=== PATIENT | female | born 1970 | race Caucasian/White ===

== ENCOUNTER 2018-07-31 00:42 | Inpatient (IN) | payer OTHER, MEDICAID ==
[~2018-07-31] VITALS: Ht 162.6 cm; Wt 188.2 kg
--- NOTE | 2018-07-31 00:42 | NUR ---
PT ALIC[facility] BLS. TAKEN TO BED 10
[2018-07-31 00:45] VITALS: BP 166/77
--- NOTE | 2018-07-31 00:45 | NUR ---
PT BIBA WITH C/O OF PAIN TO THE LEG BIALTERAL. PT HAS CELLULITIS ON LEGS, BACK, ABDOMEN REGION, BUTTOCKS. PT HAS RASH ALL OVER EXTREMETIES, STOMACH , ARMS, CHEST AND BACK. PT STATED THAT SHE HAD BEEN ADMITTED TO [facility] PREVIOUSLY FOR CELLULITIS AND UTI. PT PAIN LEVEL IS 10/10. PT IS A/O X 4. PT STATED SHE HAS ALLERGY TO VANCOMYCIN. MEDICAL HX IS KIDNEY FAILURE, DM AND HTN; VSS; PATIENT POSITIONED FOR COMFORT; HOB ELEVATED; BEDRAILS UP X2; BED DOWN. ER MD MADE AWARE OF PT STATUS.
--- NOTE | 2018-07-31 00:46 | NUR ---
Dr. Boyer evaluating patient at bedside.
[2018-07-31] MEDS ORDERED: LORA10TA19 PO (01:12)
[2018-07-31] MEDS ORDERED: TAMS0.4C96 PO (01:12)
[2018-07-31] MEDS ORDERED: DULO20EC PO (01:12)
[2018-07-31] MEDS ORDERED: INSU100S22 SUBQ (01:12)
[2018-07-31] MEDS ORDERED: HUM SUBQ (01:12)
[2018-07-31] MEDS ORDERED: IMO2 PO (01:12)
[2018-07-31] MEDS ORDERED: FAMO-90 PO (01:12)
[2018-07-31] MEDS ORDERED: GABA300C PO (01:12)
[2018-07-31] MEDS ORDERED: LATA7.5D OP (01:12)
[2018-07-31] MEDS ORDERED: PRON INH (01:12)
[2018-07-31] MEDS ORDERED: LEVA0.6318 INH (01:12)
[2018-07-31] MEDS ORDERED: APIX5TAB PO (01:12)
[2018-07-31] MEDS ORDERED: BISO5TAB2 PO (01:12)
[2018-07-31] MEDS ORDERED: ACET-2869 PO (01:12)
[2018-07-31] MEDS ORDERED: MAGN400T7 PO (01:12)
[2018-07-31] MEDS ORDERED: LEVOFLOXACIN 750 MG/D5W PREMIX 150 ML IV ONE (01:15)
[2018-07-31] MEDS ORDERED: MEROPENEM 1,000 MG in NACL 0.9% 100 ML IV ONE (01:15)
--- NOTE | 2018-07-31 01:30 | NUR ---
Respiratory Therapist at bedside for ABG's
--- NOTE | 2018-07-31 01:34 | NUR ---
X-Ray at bedside.
[2018-07-31 01:46] LABS: BASOPHILS # (AUTO) 0.1 K/uL (0.00-0.22); EOSINOPHILS # (AUTO) 0.7 K/uL (0-0.4); EOSINOPHILS % (AUTO) 9.2 % (0.0-4.0); HEMATOCRIT 29.2 % (36-48); HEMOGLOBIN 9.2 g/dL (12.0-16.0); LYMPHOCYTES # (AUTO) 1.8 K/uL (2.5-16.5); LYMPHOCYTES % (AUTO) 24.6 % (20.5-51.1); MEAN CORPUSCULAR HEMOGLOBIN 28 pg (27-31); MEAN CORPUSCULAR HGB CONC 32 g/dL (33-37); MONOCYTES # (AUTO) 0.5 K/uL (0.8-1.0); MONOCYTES % (AUTO) 6.3 % (1.7-9.3); NEUTROPHILS # (AUTO) 4.3 K/uL (1.8-7.7); NEUTROPHILS % (AUTO) 58.9 % (42.2-75.2); PLATELET COUNT (AUTO) 225 K/uL (140-450); RED BLOOD CELL COUNT(AUTO) 3.32 MIL/uL (4.20-5.40); RED CELL DISTRIBUTION WIDTH 17.1 % (11.6-13.7); WHITE BLOOD COUNT (AUTO) 7.2 K/uL (4.8-10.8)
[2018-07-31 02:13] LABS: PROTHROMBIN TIME 10.1 secs (10.8-13.4)
--- NOTE | 2018-07-31 02:15 | NUR ---
PT IS ABLE TO TURN SIDE TO SIDE WITH ASSISTANCE. PT TOERATED WELL.
[2018-07-31 02:27] LABS: ANION GAP 9.9 (8-16); CARBON DIOXIDE 26.8 mmol/L (21-32); POTASSIUM 4.7 mmol/L (3.5-5.1)
[2018-07-31 02:28] LABS: CREATININE 1.9 mg/dL (0.6-1.3)
[2018-07-31] MEDS ORDERED: MEROPENEM 1,000 MG VIAL IV ONE (02:28)
--- NOTE | 2018-07-31 02:30 | NUR ---
MARKS CATH WAS INSERTED PER MD ORDER. PT TOLERATED WELL. U/A WAS COLLECTED.
[2018-07-31 02:40] LABS: ALBUMIN 2.5 g/dL (3.4-5.0); TOTAL BILIRUBIN 0.3 mg/dL (0.0-1.0)
--- NOTE | 2018-07-31 03:14 | NUR ---
PT SITTING UP IN BED VITALS STABLE. COMFORT MEASURES OFFERED PT TOLERATED WELL.
--- NOTE | 2018-07-31 05:05 | NUR ---
PT SLEEPING IN BED, VITALS STABLE.
[2018-07-31] MEDS ORDERED: LORazepam 2 MG/ML VIAL IM/IVP PRN (06:35)
[2018-07-31] MEDS ORDERED: ACETAMINOPHEN 325 MG TAB PO PRN (06:35)
[2018-07-31] MEDS ORDERED: ONDANSETRON 4 MG/2 ML VIAL IM/IVP PRN (06:35)
[2018-07-31] MEDS ORDERED: ZOLPIDEM 5 MG TAB PO PRN (06:35)
[2018-07-31] MEDS ORDERED: DOCUSATE SODIUM 100 MG GELCAP PO PRN (06:35)
--- NOTE | 2018-07-31 06:50 | NUR ---
PT WAITING TO BE TRANSFERED. VITALS STABLE.
--- NOTE | 2018-07-31 07:10 | NUR ---
GAVE REPORT TO CLEVELAND BALL, VITALS STABLE
--- NOTE | 2018-07-31 07:20 | NUR ---
Patient will be admitted to care of DR. CROW. Admited to TELEMETRY. Will go to room 107 b. Belongings list completed.
[2018-07-31 07:22] LABS: APPEARANCE,URINE SL CLOUDY (CLEAR); BILIRUBIN,URINE NEGATIVE (NEGATIVE); BLOOD, URINE 2+ (NEGATIVE); COLOR,URINE YELLOW (YELLOW); LEUKOCYTE ESTERASE ,URINE 1+ (NEGATIVE); NITRITE, URINE NEGATIVE (NEGATIVE); PH,URINE 5.5 (5.0-9.0); UGLUCOSE NEGATIVE (NEGATIVE)
--- NOTE | 2018-07-31 07:36 | NUR ---
Patient will be admitted to care of dr peterson. Admited to [facility]. Will go to room 107B. Belongings list completed. Report to TEJAS BALL.
[2018-07-31 07:39] LABS: BARBITURATE, URINE NEG. ng/ml (NEG <=200); BENZODIAZEPINE, URINE NEG. ng/mL (NEG <=200); COCAINE, URINE NEG. ng/mL (NEG <=300); OPIATE, URINE POS. ng/mL (NEG <=2000); PHENCYCLIDINE SCREEN,URINE NEG. ng/mL (NEG <=25)
[2018-07-31 07:45] VITALS: BP 127/56
--- NOTE | 2018-07-31 07:45 | NUR ---
PATIENT ADMITTED FROM ER. PATIENT AWAKE, ALERT AND ORIENTED. NO S/S OF DISTRESS NOTED. MARKS CATHETER IN PLACE, DRAINING CLEAR YELLOW URINE. PICC LINE NOTED ON THE RIGHT UPPER ARM. EDEMA AND REDNESS NOTED ON BILATERAL THIGHS. MOISTURE ASSOCIATED SKIN DAMAGE NOTED BILATERAL POSTERIOR UPPER THIGHS. TELE MONITORING. FALL PRECAUTIONS IN PLACE. WILL CONTINUE TO MONITOR
[2018-07-31 07:53] LABS: BASOPHILS # (AUTO) 0.1 K/uL (0.00-0.22); BASOPHILS % (AUTO) 0.9 % (0.0-2.0); EOSINOPHILS # (AUTO) 0.7 K/uL (0-0.4); EOSINOPHILS % (AUTO) 8.8 % (0.0-4.0); HEMATOCRIT 30.9 % (36-48); HEMOGLOBIN 9.5 g/dL (12.0-16.0); LYMPHOCYTES # (AUTO) 1.5 K/uL (2.5-16.5); LYMPHOCYTES % (AUTO) 19.6 % (20.5-51.1); MEAN CORPUSCULAR HEMOGLOBIN 27 pg (27-31); MEAN CORPUSCULAR HGB CONC 31 g/dL (33-37); MEAN CORPUSCULAR VOLUME 89.1 fL (80-94); MONOCYTES # (AUTO) 0.5 K/uL (0.8-1.0); MONOCYTES % (AUTO) 6.4 % (1.7-9.3); NEUTROPHILS % (AUTO) 64.3 % (42.2-75.2); PLATELET COUNT (AUTO) 228 K/uL (140-450); RED BLOOD CELL COUNT(AUTO) 3.47 MIL/uL (4.20-5.40); RED CELL DISTRIBUTION WIDTH 17.3 % (11.6-13.7); WHITE BLOOD COUNT (AUTO) 7.8 K/uL (4.8-10.8)
[2018-07-31 08:16] LABS: CANNABINOID, URINE NEGATIVE ng/mL (NEG <=50)
[2018-07-31 08:20] LABS: ALBUMIN 2.6 g/dL (3.4-5.0); ANION GAP 5.1 (8-16); CARBON DIOXIDE 27.9 mmol/L (21-32); CREATININE 1.8 mg/dL (0.6-1.3); TOTAL BILIRUBIN 0.2 mg/dL (0.0-1.0)
[2018-07-31 08:26] LABS: RBC,URINE 3-10 (FEW) /HPF (0-5); WBC,URINE 16-25 (MOD) /HPF (0-5)
--- NOTE | 2018-07-31 08:26 | NUR ---
PATIENT HAS BEEN SCREENED AND CATEGORIZED HIGH NUTRITION RISK. PATIENT WILL BE SEEN WITHIN 1-2 DAYS OF ADMISSION. 07/31/18 08/01/[address]
[2018-07-31 08:27] LABS: PROTHROMBIN TIME 10.4 secs (10.8-13.4)
[2018-07-31 08:30] LABS: CHOL/HDL RATIO 3.8 (1-4.5); MAGNESIUM 1.9 mg/dL (1.8-2.4); THYROID STIMULATING HORMONE 3.71 uIU/mL (0.34-3.74)
[2018-07-31] MEDS ORDERED: Z-GUARD PASTE TP ONE (10:25)
[2018-07-31] MEDS ORDERED: Z-GUARD PASTE TP PRN (11:05)
[2018-07-31] MEDS ORDERED: LOPERAMIDE 2 MG CAP PO PRN (11:05)
[2018-07-31] MEDS ORDERED: DEXTROSE 50% 50 ML SYR IVP PRN (11:50)
[2018-07-31 12:00] VITALS: BP 146/60
--- NOTE | 2018-07-31 12:00 | NUR ---
PATIENT ASLEEP IN BED. NO S/S OF DISTRESS NOTED
[2018-07-31] MEDS: NACL 0.9% 1,000 ML IV SCH ×2 (12:06→20:39)
--- NOTE | 2018-07-31 15:08 | NUR ---
07/31/18 RD INITIAL ASSESSMENT COMPLETED PLEASE REFER TO NUTRITION ASSESSMENT UNDER CARE ACTIVITY FOR ESTIMATED NUTRITIONAL NEEDS. 1. CONTINUE NPO MEDICALLY APPROPRIATE 2. WHEN PATIENT IS MEDICALLY STABLE RECOMMEND CCHO AND RENAL DIET TOLERATED. 3. RD PROVIDED NUTRITION EDUCATION ON DIABETES. PT ACCEPTED. 4. RD TO FOLLOW-UP 3-5 DAYS, MODERATE RISK MAYCOL KING RD
[2018-07-31] MEDS ORDERED: HYDROcodone/APAP 5/325 MG 1 TAB TAB PO SCH ×2 (15:45→21:00)
--- NOTE | 2018-07-31 15:45 | NUR ---
PATIENT CRYING AND COMPLAINING ABOUT DISCOMFORT IN HER MARKS CATHETER. MARKS CATHETER CHECKED. MARKS CATHETER IN PLACE, DRAINING URINE. NOTIFIED DR PETTIT. DR SPOKE TO THE PATIENT AND EXPLAINED PURPOSE OF THE CATHETER. PATIENT VERBALIZED UNDERSTANDING
[2018-07-31] MEDS ORDERED: HYDROcodone/APAP 5/325 MG 1 TAB TAB PO PRN (15:55)
[2018-07-31 16:00] VITALS: BP 128/44
--- NOTE | 2018-07-31 16:00 | NUR ---
PATIENT REFUSED TO BE TURNED AT THIS TIME. EXPLAINED TO THE PATIENT THE RISK OF NOT BEING TURNED, PATIENT VERBALIZED UNDERSTANDING
--- NOTE | 2018-07-31 16:02 | NUR ---
PATIENT COMPLAINING OF 10/10 LEG PAIN. PATIENT OFFERED MORPHINE BUT REQUESTED NORCO
[2018-07-31] MEDS: BLOOD GLUCOSE MONITORING 1 DEV DEV FS SCH ×2 (16:07→21:00)
[2018-07-31] MEDS: MORPHINE SULFATE 4 MG/ML SYR IVP PRN ×2 (16:47→21:53)
--- NOTE | 2018-07-31 16:47 | NUR ---
PATIENT CRYING AND C/O SEVERE PAIN IN HER RIGHT LEG. PATENT REQUESTED TO HAVE MORPHINE. V/S WITHIN NORMAL LIMITS. PRN MORPHINE ADMINISTERED . WILL CONTINUE TO MONITOR
[2018-07-31] MEDS: FERROUS GLUCONATE 324 MG TAB PO SCH (18:38)
--- NOTE | 2018-07-31 19:12 | NUR ---
PATIENT REPORT GIVEN AT BEDSIDE. PATIENT ENDORSED IN STABLE CONDITION
--- NOTE | 2018-07-31 19:13 | NUR ---
RECEIVED BEDSIDE REPORT. PATIENT RESTING IN BED. STATES SOME DISCOMFORT FROM BED. PT EDUCATED ON REASON FOR BED. PT IS A&O X4. IS ON 2L NC. NO SIGNS OF SOB. PT HAS PICC LINE ON RIGHT ARM DRESSING CLEAN DRY AND INTACT. PT WITH MARKS CATH DRAINING CLEAR YELLOW URINE. SKIN IS NOT INTACT. ALL SAFETY MEASURES ON IN PLACE. CALL LIGHT WITHIN REACH. WILL CONTINUE TO MONITOR.
[2018-07-31 20:00] VITALS: BP 124/41
--- NOTE | 2018-07-31 20:20 | NUR ---
NOTIFIED DR. MAYEN REGARDING PT C/O PAIN AND UNCOMFORTABLE, PAIN MEDICATIONS ARE NOT DUE YET, PER DAY SHIFT NURSE DR. AMBROSIO TALKED TO PT REGARDING INCREASING NORCO DOSE TO 10/325, STATED UNDERSTANDING TO GIVE NORCO RIGHT NOW AND SHE WILL PUT IN ORDER. WILL FOLLOW UP WITH ORDERS AND CONTINUE WITH ORDERS.
[2018-07-31] MEDS ORDERED: HYDROcodone/APAP 10/325 MG 1 TAB TAB ONE ×2 (20:25→21:16)
--- NOTE | 2018-07-31 20:26 | NUR ---
PT REFUSED BARIATRIC BED, PT STATED FEELING UNCOMFORTABLE, YELLING AND CRYING, NOTIFIED COMMUNITY SERVICE REPRESENTATIVE AND CHARGE NURSE, TX PT TO ICU BED, PT TOLERATED WELL, PT REFUSED NORCO AT THIS MOMENT.
--- NOTE | 2018-07-31 21:25 | NUR ---
PT STATED STILL FEELING UNCOMFORTABLE AND PAIN, DR. RAMOS NOTIFIED REGARDING PAIN MEDICATION NOT DUE YET, STATED OK TO GIVE NORCO 10/325, RIGHT NOW, WILL PUT IN ORDERS. PT TOLERATED WELL, NO DISTRESS NOTED, CALL LIGHT WITHIN REACH, WILL CONTINUE TO MONITOR.
--- NOTE | 2018-07-31 21:30 | NUR ---
TALKED TO DR. RAMOS REGARDING PT STATED HAVING ITCHINESS TO THE BACK OF LEG, AND REFUSED Z GUARD. STATED UNDERSTANDING AND WILL ORDER MEDICATION. WILL FOLLOW UP WITH ORDERS.
[2018-07-31] MEDS: GABAPENTIN 300 MG CAP PO SCH (21:32)
[2018-07-31] MEDS: APIXABAN 2.5 MG TAB PO SCH (21:33)
[2018-07-31] MEDS: INSULIN LISPRO SLIDING SCALE 100 UNITS/ML VIAL SUBQ PRN (21:34)
[2018-07-31] MEDS: hydrOXYzine HCL 25 MG TAB PO PRN (21:55)
--- NOTE | 2018-07-31 22:20 | NUR ---
DR. RAMOS AT BEDSIDE TALKING TO PT
[2018-08-01] VITALS: BP 134/47
--- NOTE | 2018-08-01 | NUR ---
PT LAYING IN BED WATCHING TELEVISION. STATES STILL HAS SOME DISCOMFORT ON BOTH LEGS. PT DID NOT WANT TO BE REPOSITION. PT IS CALMER THAN EARLIER. VITAL SIGNS ARE WITHIN NORMAL LIMITS. NO SIGNS OF SOB. CALL LIGHT WITHIN REACH. WILL CONTINUE TO MONITOR.
--- NOTE | 2018-08-01 02:19 | NUR ---
PT SLEEPING. NO DISTRESS NOTED AT THIS TIME WILL CONTINUE TO MONITOR. CALL LIGHT WITHIN REACH
[2018-08-01 04:00] VITALS: BP 119/61
--- NOTE | 2018-08-01 04:00 | NUR ---
VITAL SIGNS WITHIN NORMAL LIMITS. PT SLEEPING COMFORTABLY IN BED. NO SIGNS OF DISTRESS NOTED AT THIS TIME. BED ON LOWEST POSITION. ALL SAFETY MEASURES IN PLACE.
[2018-08-01 06:05] LABS: BASOPHILS # (AUTO) 0.1 K/uL (0.00-0.22); BASOPHILS % (AUTO) 0.7 % (0.0-2.0); EOSINOPHILS # (AUTO) 0.6 K/uL (0-0.4); EOSINOPHILS % (AUTO) 8.8 % (0.0-4.0); HEMATOCRIT 29.6 % (36-48); HEMOGLOBIN 9.2 g/dL (12.0-16.0); LYMPHOCYTES # (AUTO) 1.3 K/uL (2.5-16.5); LYMPHOCYTES % (AUTO) 17.7 % (20.5-51.1); MEAN CORPUSCULAR HEMOGLOBIN 28 pg (27-31); MEAN CORPUSCULAR HGB CONC 31 g/dL (33-37); MEAN CORPUSCULAR VOLUME 88.1 fL (80-94); MONOCYTES # (AUTO) 0.4 K/uL (0.8-1.0); MONOCYTES % (AUTO) 6.1 % (1.7-9.3); NEUTROPHILS # (AUTO) 4.8 K/uL (1.8-7.7); NEUTROPHILS % (AUTO) 66.7 % (42.2-75.2); PLATELET COUNT (AUTO) 221 K/uL (140-450); RED BLOOD CELL COUNT(AUTO) 3.36 MIL/uL (4.20-5.40); RED CELL DISTRIBUTION WIDTH 16.6 % (11.6-13.7); WHITE BLOOD COUNT (AUTO) 7.2 K/uL (4.8-10.8)
[2018-08-01] MEDS: BLOOD GLUCOSE MONITORING 1 DEV DEV FS SCH ×4 (06:16→20:50)
[2018-08-01] MEDS: NACL 0.9% 1,000 ML IV SCH ×2 (06:16→17:18)
[2018-08-01 06:44] LABS: ANION GAP 4.8 (8-16); CREATININE 1.6 mg/dL (0.6-1.3); POTASSIUM 4.8 mmol/L (3.5-5.1)
[2018-08-01 06:53] LABS: MAGNESIUM 1.9 mg/dL (1.8-2.4); PHOSPHORUS 3.6 mg/dL (2.5-4.9)
--- NOTE | 2018-08-01 07:18 | NUR ---
ENDORSED PT TO DAY SHIFT NURSE VIA SBAR. PT IN STABLE CONDITION. ALL SAFETY MEASURES IN PLACE.
--- NOTE | 2018-08-01 07:30 | NUR ---
RECEIVED REPORT FROM FIELD INSPECTOR NURSE, PT IS SLEEPING IN BED BUT EASILY AWAKEN, PT IS AAOX4, ON BEDREST, PT IS ON O2 2L NC, PT HAS PICC LINE ON RIGHT ARM, PATENT, INTACT, FLUSHING WELL, NO S/S OF RESPIRATORY DISTRESS OR DISCOMFORT NOTED, PT HAS CELLULITIS ON BILATERAL LOWER EXTREMITIES, INTERDRY IN PLACE UNDER SKIN FOLDS, DISCUSSED PLAN OF CARE WITH PT, PT VERBALIZED UNDERSTANDING, SAFETY/FALL PRECAUTIONS ARE IN PLACE, CALL LIGHT IS WITHIN REACH, US TECH IS AT BEDSIDE, WILL CONTINUE TO MONITOR.
[2018-08-01 08:00] VITALS: BP 120/73
[2018-08-01] MEDS: MORPHINE SULFATE 4 MG/ML SYR IVP PRN (08:34)
--- NOTE | 2018-08-01 08:34 | NUR ---
PATIENT UNABLE TO COMPLETE ECHO EXAM AT THIS TIME. PT COMPLAINING OF 8/10 PAIN. WILL MEDICATE WITH PRN PAIN MEDICATION AT THIS TIME. HARI (DEVIN) SAID SHE WOULD COME BACK LATER AND ATTEMPT AGAIN.
[2018-08-01] MEDS: FAMOTIDINE 20 MG TAB PO SCH (08:35)
[2018-08-01] MEDS: GABAPENTIN 300 MG CAP PO SCH ×2 (08:35→20:28)
[2018-08-01] MEDS: PROPRANOLOL 20 MG TAB PO SCH (08:35)
[2018-08-01] MEDS: TAMSULOSIN 0.4 MG CAP PO SCH (08:35)
[2018-08-01] MEDS: FERROUS GLUCONATE 324 MG TAB PO SCH ×2 (08:36→17:33)
[2018-08-01] MEDS: DULoxetine 30 MG CAPDR PO SCH (08:36)
[2018-08-01] MEDS: LORATADINE 10 MG TAB PO SCH (08:37)
[2018-08-01] MEDS: APIXABAN 2.5 MG TAB PO SCH ×2 (08:48→20:29)
[2018-08-01] MEDS ORDERED: DULoxetine 30 MG CAPDR PO SCH (09:00)
[2018-08-01] MEDS: NYSTATIN/TRIAMCINOLONE CRM 15 GM TUBE TP SCH ×3 (09:00→17:22)
[2018-08-01] MEDS: INSULIN LANTUS 100 UNITS/ML 10 ML VIAL SUBQ SCH (09:11)
--- NOTE | 2018-08-01 10:00 | NUR ---
PT TURNED AND REPOSITIONED, GOWN WAS CHANGED, ALL NEEDS ARE MET AT THIS TIME, SAFETY/FALL PRECAUTIONS ARE IN PLACE, CALL LIGHT IS WITHIN REACH.
--- NOTE | 2018-08-01 11:27 | NUR ---
REASON FOR EVALUATION: DERMATITIS SKIN ASSESSMENT DONE WITH PRIMARY RN WITH THIS 48 Y/O FEMALE PT ADMITTED FROM [facility] TO [facility] WITH INITIAL DX BLE PAIN. PAST MEDICAL HX INCLUDES DM, HTN, CKD, HYPERLIPEMIA AND MORBID OBESITY. ALL ABOVE INFORMATION OBTAINED FROM ADMISSION H&P AND PT, PT IS AAX4. PT IS AWAKE. SKIN IS WARM AND MOIST, BLE NO HAIR GROWTH, XEROSIS WITH MULTIPLE SKIN FOLDS. DORSAL PEDAL PULSES PRESENT AND NORMAL. CAPILLARY REFILLED < 2 SEC. X 10 TOES[address] F/C IN PLACE WITH CLEAR YELLOW URINE OUTPUT, PT. SAID SHE AMBULATED AT HOME TO BATHROOM BUT WHEN SHE IS AT [facility] SHE USE THE BEDPAN. INSTRUCT PT TO TURN AND SHIFT WEIGHT Q 1-2 HOURS, PLAN OF CARE DISCUSSED WITH PRIMARY RN AND PT. PT VERBALIZES UNDERSTANDING. CHARGE NURSE REPORTED THAT PT. REFUSES BARIATRIC BED WITH TRAPEZE. INTEGUMENTARY: -INTERTRIGO TO UNDER BREASTS, WITH LEFT UNDER BREAST EROSION 0.3X4 CM WOUND BED IS MOIST, NO ODOR -INTERTRIGO ABDOMINAL FOLDS AND BLE SKIN FOLDS -MOISTURE ASSOCIATE DERMATITIS TO RLQ ABDOMEN WITH MULTIPLE PIN POINT PARTIAL THICKNESS SKIN LOSS , PINK AND MOIST, NO S/S OF INFECTION -MOISTURE ASSOCIATE DERMATITIS (MAD) TO: R/L GROINS EXTENDED TO PERINEUM AND POSTERIOR THIGHS WHICH OBSERVED WITH MULTIPLE LINEAR SHAPE EROSION AND JONY WOUND SKIN DENUDED -MAD TO RIGHT AND LEFT INNER BUTTOCKS EXTENDED TO PERIANAL PARTIAL THICKNESS SKIN EROSIONS WITH LARGEST SIZE ON LEFT BUTTOCK 2X3X0.1 CM, WOUND BED IS PINK, CLEAN AND MOIST. NO ODOR. -BLE XEROSIS WITH CELLULITIS, ERYTHEMA, +2 EDEMA, SKIN INTACT RECOMMENDATIONS: -KEEP SKIN DRY AND CLEAN AT ALL TIMES, PLEASE CHECK Q2H AND PRN -APPLY HYDRAGUARD TO R/L LOWER EXTREMITIES XEROSIS BID AND PRN IF SOILING - APPLY Z GUARD TO MAD AREAS RLQ ABDOMEN, RIGHT AND LEFT INNER BUTTOCKS EXTENDED TO PERIANAL AND POSTERIOR THIGHS BID AND PRN IF SOILING, LEAVE IT OPEN TO AIR -APPLY NYSTATIN POWDER TO INTERTRIGO R/L UNDER BREASTS, ABDOMINAL FOLDS AND BLE SKIN FOLDS -OFFLOAD BILATERAL HEELS BY PLACING PILLOWS UNDER CALVES UNLESS OTHERWISE CONTRAINDICATED -PRESSURE REDISTRIBUTION SURFACE THERAPY -TURN AND REPOSITION Q2H, OFFLOAD SACRALCOCCYX AND BUTTOCKS BY TURNING RIGHT AND LEFT ALL ABOVE RECOMMENDATIONS DISCUSSED WITH PRIMARY RN.AND DR. PETTIT WILL FOLLOW UP PT Q7-10 DAYS. PLEASE CONTACT WOUND CARE NURSE FOR ANY QUESTION AND CHANGE OF WOUND CONDITION
[2018-08-01 12:00] VITALS: BP 121/63
[2018-08-01] MEDS: hydrOXYzine HCL 25 MG TAB PO PRN (12:11)
[2018-08-01] MEDS: HYDROcodone/APAP 10/325 MG 1 TAB TAB PO PRN ×2 (12:11→20:34)
[2018-08-01] MEDS: HYDRAGUARD CREAM TP SCH (12:26)
[2018-08-01 12:30] LABS: FOLIC ACID 6.4 ng/mL (>3.0)
--- NOTE | 2018-08-01 12:45 | NUR ---
FNS IS AT PATIENT'S BEDSIDE TALKING TO PATIENT.
--- NOTE | 2018-08-01 14:35 | NUR ---
PT IS SLEEPING IN BED AT THIS TIME, NO S/S OF DISTRESS NOTED, CALL LIGHT IS WITHIN REACH.
[2018-08-01 16:00] VITALS: BP 127/68
[2018-08-01] MEDS: INSULIN LISPRO SLIDING SCALE 100 UNITS/ML VIAL SUBQ PRN ×2 (17:35→20:48)
--- NOTE | 2018-08-01 17:42 | NUR ---
Corporate Travel Coordinator Note: Per patient she would like to return to [facility] upon discharge. She stated she has been living there for 3 months, she was suppoused to return home from [facility] on Jun 30, 2018, however, the staff at [facility] didn't think it was safe for her to return then because she wasn't able to walk up and down stairs, and her home has stairs. She reported she has been at [facility] in the past and also at [facility]. She stated she filed a grievance against [facility] for mistreatment.
--- NOTE | 2018-08-01 19:20 | NUR ---
ENDORSED PT TO MERCHANDISING COORDINATOR NURSE FOR CONTINUITY OF CARE. PT STABLE AT THIS TIME.
--- NOTE | 2018-08-01 19:30 | NUR ---
RECEIVED FROM AM RN IN BED AWAKE AND ALERT . VERBALIZES WELL. ORIENTED X 4. PICC LINE TO RIGHT BRACHIA. DX. OF CLLULITIS TO BILATERAL LOWER EXTREMITIES. CARE PLANS FOR THE NIGHT DISCUSSED WITH HER AND CALL LIGHT WITH IN REACH. TELEMETRY MONITORING. DENIES PAIN AT THIS TIME. PT. ON AT 2 LPM/NC WITH SAT OF 96 %. MORBIDLY OBESE FEMALE. ASSISTED WITH ADLS. TOTAL CARE.
[2018-08-01 19:58] VITALS: BP 117/64
--- NOTE | 2018-08-01 20:37 | NUR ---
PT. STILL AWAKE AND ON THE COMPUTER. REQUESTED FOR PAIN RELIEVER . VERBALIZES WELL. ORIENTED X 4. CLEAR SPEECH.
--- NOTE | 2018-08-01 21:31 | NUR ---
PT. SLEEPING AT THIS TIME. CALL LIGHT WITH IN REACH.
[2018-08-02] VITALS: BP 120/66
[2018-08-02] MEDS: HYDRAGUARD CREAM TP SCH ×2 (01:00→12:42)
[2018-08-02] MEDS: MORPHINE SULFATE 4 MG/ML SYR IVP PRN (01:17)
[2018-08-02] MEDS: NACL 0.9% 1,000 ML IV SCH (02:39)
--- NOTE | 2018-08-02 03:15 | NUR ---
PT. BEEN AWAKE . NOT SLEEPING YET. WATCHING [employer] ON HER COMPUTER. PT. COMPLAINING THAT SHE IS ITCHY. ASKED IF SHE WANTS ANY MEDICINE FOR IT. "NO" PLEASE JUST CHECK IF MY LEGS ARE WET. BUSINESS MACHINES TEACHER AND NURSE CHECKED AND IT IS DRY. ENCOURAGED TO SLEEP. NO NOTED RASHES IN THE BODY OR URTICARIA. NO SOB. NO IVF ABT ADMINISTERED DURING MY SHIFT. EXPLAINED TO PT. STATED"I KNOW" . CALL LIGHT WITH IN REACH. PT. KEEP FOLDING HER RIGHT HAND AND MAKES THE IVF STOP . EXPLAINED TO HER. FORGETS MOST OF TIMES. KEEPS FOLDING ARM.
[2018-08-02 05:28] VITALS: BP 126/80
[2018-08-02] MEDS: BLOOD GLUCOSE MONITORING 1 DEV DEV FS SCH ×4 (05:42→20:24)
[2018-08-02] MEDS: INSULIN LISPRO SLIDING SCALE 100 UNITS/ML VIAL SUBQ PRN ×2 (05:48→20:23)
[2018-08-02] MEDS ORDERED: LOPERAMIDE 2 MG CAP PO PRN (05:55)
[2018-08-02] MEDS ORDERED: hydrOXYzine HCL 25 MG TAB PO PRN ×2 (05:55→08:40)
[2018-08-02 06:43] LABS: BASOPHILS % (AUTO) 0.8 % (0.0-2.0); EOSINOPHILS # (AUTO) 0.4 K/uL (0-0.4); EOSINOPHILS % (AUTO) 6.9 % (0.0-4.0); HEMATOCRIT 24.4 % (36-48); HEMOGLOBIN 7.6 g/dL (12.0-16.0); LYMPHOCYTES # (AUTO) 1.3 K/uL (2.5-16.5); LYMPHOCYTES % (AUTO) 25.7 % (20.5-51.1); MEAN CORPUSCULAR HEMOGLOBIN 27 pg (27-31); MEAN CORPUSCULAR HGB CONC 31 g/dL (33-37); MEAN CORPUSCULAR VOLUME 88.5 fL (80-94); MONOCYTES # (AUTO) 0.3 K/uL (0.8-1.0); MONOCYTES % (AUTO) 6.6 % (1.7-9.3); NEUTROPHILS # (AUTO) 3.1 K/uL (1.8-7.7); PLATELET COUNT (AUTO) 179 K/uL (140-450); RED BLOOD CELL COUNT(AUTO) 2.76 MIL/uL (4.20-5.40); RED CELL DISTRIBUTION WIDTH 16.6 % (11.6-13.7); WHITE BLOOD COUNT (AUTO) 5.1 K/uL (4.8-10.8)
--- NOTE | 2018-08-02 06:45 | NUR ---
PT. FINALLY SLEPT. BEEN WATCHING [employer] ALL NIGHT LONG. OFFERRED SOMETHING TO SLEEP. REFUSED. ENCOURAGED TO REST AND SLEEP. ALL NEEDS MET. USES CALL LIGHT WELL. BLOOD SUGAR CHECK 193. REGULAR INSULIN COVERAGE OF 2 UNITS. MARKS CATHETER DRAINING WELL WITH YELLOW URINE.
--- NOTE | 2018-08-02 07:00 | NUR ---
RECEIVED PT FROM FEATHER CURLING MACHINE OPERATOR NURSE, ENRIQUE, PT IS ASLEEP LYING ON THE AN ICU BED, WITH SIDE RAILS UP AND CALL LIGHT WITHIN REACH, RESPIRATIONS EVEN, PT HAS A RT BRACHIAL PICC LINE, INTACT BUT WITH NO IV FLUID RUNNING. PT HAS AN O2 AT 2L NC IN PLACE. PT HAS A MARKS CATHETER IN PLACE AND DRAINED 400ML OF URINE FROM THE MARKS BAG. NO SIGN OF DISTRESS NOTED AND WILL CONTINUE TO MONITOR PT.
[2018-08-02 07:03] LABS: MAGNESIUM 1.6 mg/dL (1.8-2.4); PHOSPHORUS 3.1 mg/dL (2.5-4.9)
[2018-08-02 07:47] LABS: ANION GAP 9.2 (8-16); CARBON DIOXIDE 27.2 mmol/L (21-32); CREATININE 1.4 mg/dL (0.6-1.3); POTASSIUM 4.4 mmol/L (3.5-5.1)
[2018-08-02 08:00] VITALS: BP 136/59
[2018-08-02] MEDS ORDERED: LORazepam 2 MG/ML VIAL IVP SCH (08:30)
[2018-08-02] MEDS: FERROUS GLUCONATE 324 MG TAB PO SCH ×2 (09:57→17:02)
[2018-08-02] MEDS: TAMSULOSIN 0.4 MG CAP PO SCH (09:58)
[2018-08-02] MEDS: DULoxetine 30 MG CAPDR PO SCH (09:58)
[2018-08-02] MEDS: FAMOTIDINE 20 MG TAB PO SCH (09:59)
[2018-08-02] MEDS: GABAPENTIN 300 MG CAP PO SCH ×2 (09:59→20:24)
[2018-08-02] MEDS ORDERED: MAGNESIUM OXIDE 400 MG TAB PO SCH (10:00)
[2018-08-02] MEDS: LORATADINE 10 MG TAB PO SCH (10:00)
[2018-08-02] MEDS: PROPRANOLOL 20 MG TAB PO SCH (10:00)
[2018-08-02] MEDS: APIXABAN 2.5 MG TAB PO SCH ×2 (10:02→20:22)
[2018-08-02] MEDS: INSULIN LANTUS 100 UNITS/ML 10 ML VIAL SUBQ SCH (10:05)
--- NOTE | 2018-08-02 11:40 | NUR ---
PT IS AWAKE AND MEDICATION GIVEN AND PT TOLERATED IT. WILL MONITOR.
[2018-08-02 12:00] VITALS: BP 130/69
[2018-08-02] MEDS: NYSTATIN/TRIAMCINOLONE CRM 15 GM TUBE TP SCH ×3 (12:34→17:04)
--- NOTE | 2018-08-02 13:05 | NUR ---
JAYSHREE FROM LAB CALLED AND REPORTED THAT THE PT WAS POSITIVE FOR ACINETOBACTER BAUMANNII ORGANISM IN THE SACRAL WOUND CULTURE. ACKNOWLEDGED AND WILL INFORM
--- NOTE | 2018-08-02 13:08 | NUR ---
CALLED DR. CHESTER AND INFORMED THAT PT WAS POSITIVE FOR ACINETOBACTER BAUMANNII ORGANISM IN THE SACRAL WOUND CULTURE, DR. CHESTER SAID THAT HE WILL PLACE AN ORDER.
[2018-08-02 15:16] LABS: BASOPHILS # (AUTO) 0.1 K/uL (0.00-0.22); EOSINOPHILS # (AUTO) 0.4 K/uL (0-0.4); EOSINOPHILS % (AUTO) 7.3 % (0.0-4.0); HEMATOCRIT 30.6 % (36-48); HEMOGLOBIN 9.6 g/dL (12.0-16.0); LYMPHOCYTES # (AUTO) 1.2 K/uL (2.5-16.5); LYMPHOCYTES % (AUTO) 21.4 % (20.5-51.1); MEAN CORPUSCULAR HEMOGLOBIN 28 pg (27-31); MEAN CORPUSCULAR HGB CONC 31 g/dL (33-37); MEAN CORPUSCULAR VOLUME 87.8 fL (80-94); MONOCYTES # (AUTO) 0.4 K/uL (0.8-1.0); MONOCYTES % (AUTO) 6.2 % (1.7-9.3); NEUTROPHILS # (AUTO) 3.7 K/uL (1.8-7.7); NEUTROPHILS % (AUTO) 64.1 % (42.2-75.2); PLATELET COUNT (AUTO) 211 K/uL (140-450); RED BLOOD CELL COUNT(AUTO) 3.48 MIL/uL (4.20-5.40); RED CELL DISTRIBUTION WIDTH 16.9 % (11.6-13.7); WHITE BLOOD COUNT (AUTO) 5.7 K/uL (4.8-10.8)
[2018-08-02 16:00] VITALS: BP 158/80
--- NOTE | 2018-08-02 16:30 | NUR ---
PT IS AWAKE AND MEDICATIONS GIVEN, BLOOD GLUCOSE CHECK DONE AND RESULT IS 129 AND NO INSULIN NEEDED.
--- NOTE | 2018-08-02 17:40 | NUR ---
REPOSITIONED PT AND BARRIER MEDICATIONS WERE APPLIED TO SKIN.
[2018-08-02] MEDS: HYDROcodone/APAP 10/325 MG 1 TAB TAB PO PRN (18:00)
--- NOTE | 2018-08-02 19:20 | NUR ---
ENDORSED PT TO STERILE PROC TECH NURSE FOR CONTINUITY OF CARE. PT IS STABLE AT THIS TIME.
--- NOTE | 2018-08-02 19:25 | NUR ---
RECEIVED REPORT FROM DAY SHIFT NURSE. PT RESTING IN BED. NO SOB. PT A&OX4. PT IS ON 2L NC. PT WITH MARKS PLACED ON 07/31. PICC LINE ON RIGHT ARM DRESSING INTACT. CURRENTLY NO FLUIDS INFUSING AT THIS TIME. ALL SAFETY MEASURES IN PLACE. BED ON LOWEST POSITION. CALL LIGHT WITHIN REACH. WILL CONTINUE TO MONITOR.
[2018-08-02 19:55] VITALS: BP 141/59
--- NOTE | 2018-08-02 20:22 | NUR ---
DUE MEDICATIONS GIVEN PT TOLERATED WELL. NO SIGNS OR SYMPTOMS OF DISTRESS NOTED. ALL SAFETY MEASURES IN PLACE. CALL LIGHT WITHIN REACH.
[2018-08-03] VITALS: BP 119/69
--- NOTE | 2018-08-03 00:20 | NUR ---
PTS VITAL SIGNS WITHIN NORMAL LIMITS. PTS ON LAPTOP DENIES PAIN. NO SIGNS OF DISTRESS NOTED AT THIS TIME. CALL LIGHT WITHIN REACH WILL CONTINUE TO MONITOR.
[2018-08-03] MEDS: HYDRAGUARD CREAM TP SCH ×2 (01:56→13:00)
[2018-08-03] MEDS: NACL 0.9% 1,000 ML IV SCH (02:06)
--- NOTE | 2018-08-03 03:45 | NUR ---
PT REPOSITION AND BARRIER MEDICATION APPLIED. PT WITH NO SIGNS OF DISTRESS WILL CONTINUE TO MONITOR. CALL LIGHT WITHIN REACH
[2018-08-03 04:00] VITALS: BP 139/53
[2018-08-03] MEDS: HYDROcodone/APAP 10/325 MG 1 TAB TAB PO PRN ×3 (04:44→22:38)
[2018-08-03] MEDS: BLOOD GLUCOSE MONITORING 1 DEV DEV FS SCH ×4 (06:26→20:28)
[2018-08-03] MEDS: INSULIN LISPRO SLIDING SCALE 100 UNITS/ML VIAL SUBQ PRN ×3 (06:26→20:49)
--- NOTE | 2018-08-03 07:15 | NUR ---
ENDORSED PT TO DAY SHIFT. PT IN BED IN STABLE CONDITION. ALL SAFETY MEASURES IN PLACE.
--- NOTE | 2018-08-03 07:20 | NUR ---
RECEIVED PT FROM INTEGRATION SPECIALIST NURSE,PT IS AWAKE AND LYING ON THE BED, WITH SIDE RAILS UP AND CALL LIGHT WITHIN REACH, PT IS ON CONTACT ISOLATION, SIGN POSTED AND ON O2 2L NC, WITH A PICC LINE ON THE RT UPPER ARM, SINGLE LUMEN WITH NS AT 10ML/HR INFUSING, BUT NO DATE WAS NOTED ON THE PICC LINE. PT IS ON TELE MONITORING. PT HAS A MARKS CATHETER IN PLACE BUT PT IS COMPLAINING OF PAIN ON THE SITE INSERTION, PAIN IS ON A SCALE OF 7/10 AND A SPASTIC PAIN PER PT DESCRIPTION. FALL PRECAUTION ENFORCED. NO SIGN OF DISTRESS NOTED AND WILL CONTINUE TO MONITOR PT.
[2018-08-03 07:32] LABS: BASOPHILS % (AUTO) 0.7 % (0.0-2.0); EOSINOPHILS # (AUTO) 0.4 K/uL (0-0.4); EOSINOPHILS % (AUTO) 6.1 % (0.0-4.0); HEMATOCRIT 28.6 % (36-48); HEMOGLOBIN 9.1 g/dL (12.0-16.0); LYMPHOCYTES # (AUTO) 1.5 K/uL (2.5-16.5); LYMPHOCYTES % (AUTO) 24.4 % (20.5-51.1); MEAN CORPUSCULAR HEMOGLOBIN 28 pg (27-31); MEAN CORPUSCULAR HGB CONC 32 g/dL (33-37); MEAN CORPUSCULAR VOLUME 87.6 fL (80-94); MONOCYTES # (AUTO) 0.4 K/uL (0.8-1.0); MONOCYTES % (AUTO) 6.6 % (1.7-9.3); NEUTROPHILS # (AUTO) 3.7 K/uL (1.8-7.7); NEUTROPHILS % (AUTO) 62.2 % (42.2-75.2); PLATELET COUNT (AUTO) 209 K/uL (140-450); RED BLOOD CELL COUNT(AUTO) 3.27 MIL/uL (4.20-5.40); RED CELL DISTRIBUTION WIDTH 16.3 % (11.6-13.7)
[2018-08-03 07:48] LABS: ANION GAP 8.9 (8-16); CARBON DIOXIDE 28.8 mmol/L (21-32); CREATININE 1.4 mg/dL (0.6-1.3); POTASSIUM 4.7 mmol/L (3.5-5.1)
[2018-08-03 08:00] VITALS: BP 131/54
--- NOTE | 2018-08-03 08:54 | NUR ---
DR. CHESTER MADE A VERBAL ORDER TO REMOVE THE MARKS CATHETER FROM THE PT. WILL CARRY OUT MD ORDER.
[2018-08-03] MEDS: PROPRANOLOL 20 MG TAB PO SCH ×2 (09:00→10:14)
[2018-08-03] MEDS: TAMSULOSIN 0.4 MG CAP PO SCH ×2 (09:00→10:15)
[2018-08-03] MEDS: NYSTATIN/TRIAMCINOLONE CRM 15 GM TUBE TP SCH (09:00)
[2018-08-03] MEDS ORDERED: hydrOXYzine HCL 25 MG TAB PO SCH (09:30)
[2018-08-03] MEDS: LORATADINE 10 MG TAB PO SCH (10:05)
[2018-08-03] MEDS: GABAPENTIN 300 MG CAP PO SCH ×2 (10:06→20:46)
[2018-08-03] MEDS: FAMOTIDINE 20 MG TAB PO SCH (10:06)
[2018-08-03] MEDS: FERROUS GLUCONATE 324 MG TAB PO SCH ×2 (10:07→17:31)
[2018-08-03] MEDS: DULoxetine 30 MG CAPDR PO SCH (10:07)
[2018-08-03] MEDS: CALAMINE/ZINC OXIDE 8% 118 ML BTL TP SCH ×3 (10:08→20:53)
[2018-08-03] MEDS: APIXABAN 2.5 MG TAB PO SCH ×2 (10:12→20:48)
[2018-08-03] MEDS: INSULIN LANTUS 100 UNITS/ML 10 ML VIAL SUBQ SCH (10:13)
--- NOTE | 2018-08-03 10:40 | NUR ---
MARKS CATHETER WAS REMOVED AND PT SHOW NO SIGN OF DISTRESS. WILL MONITOR PT.
[2018-08-03 12:00] VITALS: BP 129/52
--- NOTE | 2018-08-03 12:03 | NUR ---
CALLED DR. CHESTER AND VERIFIED WITH MD ABOUT THE PT'S NYSTATIN CREAM AND ITS DOSE INSTRUCTION THAT WAS PLACED BY MD. DR. CHESTER SAID THAT NYSTATIN POWDER IS NEEDED FOR THE PT TO PREVENT PERSPIRATION TO ACCUMULATE AND INFECTION TO OCCUR., AND SAID THAT HE WILL CHANGE THE ORDER.
--- NOTE | 2018-08-03 12:19 | NUR ---
PT IS AWAKE AND IS COMPLAINING OF A PAIN RATE OF 7/10. PT WAS MEDICATED WITH NORCO. WILL RE-ASSESS PAIN AFTER AN HOUR.
[2018-08-03 16:00] VITALS: BP 144/73
--- NOTE | 2018-08-03 16:55 | NUR ---
ACKNOWLEDGED AN ORDER FROM DR. RAZA FOR THE PT TO BE DOWNGRADED TO MED-SURG. WILL FACILITATE ORDER.
--- NOTE | 2018-08-03 17:40 | NUR ---
PT WAS REPOSITIONED AND SKIN MEDICATIONS WERE APPLIED AND PT WAS MADE COMFORTABLE AND BEDSIDE TABLE WAS SET AND DINNER WAS SERVED TO PT.
--- NOTE | 2018-08-03 18:15 | NUR ---
PT IS WATCHING ON HER LAPTOP.
--- NOTE | 2018-08-03 19:40 | NUR ---
ENDORSED PT TO TAILER OUT NURSEMAL FOR CONTINUITY OF CARE, PT IS STABLE AT THIS TIME.
--- NOTE | 2018-08-03 19:40 | NUR ---
RECEIVED REPORT FROM DAY SHIFT NURSE, RAYMOND, AT PT BEDSIDE. PT IN STABLE CONDITION. PT IS AAOX4. PT ON NC 2L. RESPIRATIONS ARE EVEN AND UNLABORED. PT HAS RUE PICC LINE WITH IVF RUNNING PER MD ORDERS. IV IS PATENT AND INTACT. PT HAS REDNESS AND DRYNESS TO BILATERAL LE. PT C/O ITCHINESS TO LE. REDNESS ALSO NOTED ON SACRAL AREA, ABDOMINAL SKIN FOLDS AND BREAST SKINFOLDS. BED IS LOCKED, LOW POSITION WITH SIDE RAILS UP X2. CALL LIGHT IS WITHIN REACH. BOARD UPDATED. WILL CONTINUE TO MONITOR PT.
--- NOTE | 2018-08-03 20:50 | NUR ---
ADMINISTERED SCHEDULED MEDICATIONS TO PT. PT C/O OF ITCHINESS ON LEGS BUT IS REFUSING THE CALAMINE LOTION. EXPLAINED TO PT IT IS USED TO HELP DECREASE ITCHINESS BUT PT DOES NOT WANT IT AT THIS TIME. INSULIN COVERAGE GIVEN TO PT FOR BS OF 157. PT TOLERATED WELL. ASSISTED CAFETERIA DIRECTOR IN CHANGING AND CLEANING PT. PT DOES NOT WISH TO BE TURNED AT THIS TIME. NEW INTRADRY WAS APPLIED IN ABDOMINAL SKINFOLDS. HYDRAGUARD APPLIED TO BILATERAL LEGS AND UNDER BREAST SKIN FOLDS. Z-GUARD APPLIED TO SACRAL AREA. ALL PT NEEDS ARE MET AT THIS TIME. WILL CONTINUE TO MONITOR PT.
--- NOTE | 2018-08-03 22:38 | NUR ---
PT C/O PAIN. NORCO GIVEN. PT CHANGED AND CLEANED. PT TOLERATED WELL. WILL CONTINUE TO MONITOR.
--- NOTE | 2018-08-03 23:38 | NUR ---
PT NOW STATING PAIN 2/10. PT IS COMFORTABLE IN BED. ALL NEEDS ARE MET AT THIS TIME. WILL CONTINUE TO MONITOR.
[2018-08-04] VITALS: BP 136/71
--- NOTE | 2018-08-04 00:11 | NUR ---
CENTRAL LINE DRESSING CHANGED. PT TOLERATED WELL. WILL CONTINUE TO MONITOR.
[2018-08-04] MEDS: HYDRAGUARD CREAM TP SCH ×2 (01:22→13:05)
--- NOTE | 2018-08-04 01:23 | NUR ---
PT C/O OF PAIN AND BURNING WITH URINATION. CAM TO SEE PT AND ORDERED PYRIDIUM. ADMINISTERED TO PT. PT ALSO C/O NAUSEA. ZOFRAN GIVEN. PT TOLERATED WELL. WILL CONTINUE TO MONITOR.
[2018-08-04] MEDS ORDERED: PHENAZOPYRIDINE 100 MG TAB PO SCH (02:00)
[2018-08-04] MEDS: NACL 0.9% 1,000 ML IV SCH (02:39)
--- NOTE | 2018-08-04 03:30 | NUR ---
PT RESTING COMFORTABLY IN BED. NO SIGNS OR SYMPTOMS OF DISTRESS. WILL CONTINUE TO MONITOR.
[2018-08-04] MEDS: BLOOD GLUCOSE MONITORING 1 DEV DEV FS SCH ×3 (06:08→16:14)
[2018-08-04] MEDS: INSULIN LISPRO SLIDING SCALE 100 UNITS/ML VIAL SUBQ PRN (06:25)
--- NOTE | 2018-08-04 06:25 | NUR ---
INSULIN COVERAGE GIVEN FOR BS 169 PER MD ORDERS. PT TOLERATED WELL. WILL CONTINUE TO MONITOR.
--- NOTE | 2018-08-04 07:20 | NUR ---
ENDORSED TRANSFER PLAN TO SEAMER OPERATOR LIZZY BALDERAS AWARE TO D/C PT UA PICC LINE BEFORE TRANSFER. PT IN STABLE CONDITION. Addendum: 08/04/18 at 1941 by Alexa Fernandez Meng, RN WRONG TIME.
--- NOTE | 2018-08-04 07:24 | NUR ---
ENDORSED PT TO DAY SHIFT NURSEKILO FOR CONTINUITY OF CARE. PT IN STABLE CONDITION.
--- NOTE | 2018-08-04 07:25 | NUR ---
RECEIVED REPORT FROM FLAP PRESSER RN. PATIENT SLEEPING IN BED, AROUSABLE BY VOICE. DENIES PAIN AND DISCOMFORT. MOISTURE ASSOCIATED SKIN BREAKDOWN ON POSTERIOR THIGHS, BUTTOCKS, AND PERIANAL AREA. SKIN TEARS ON LEFT BUTTOCK, DRESSING CLEAN AND DRY. INTERTRIGO ON BREAST, ABD FOLDS, BLE SKIN FOLDS. ON 2L NC. CONTACT PRECAUTIONS. RT UA PICC PATENT AND ASYMPTOMATIC, INFUSING IVF PER MD ORDERS. ALL SAFETY PRECAUTIONS IN PLACE, WILL CONTINUE TO MONITOR.
[2018-08-04 07:55] LABS: BASOPHILS % (AUTO) 0.7 % (0.0-2.0); EOSINOPHILS # (AUTO) 0.5 K/uL (0-0.4); EOSINOPHILS % (AUTO) 7.6 % (0.0-4.0); HEMATOCRIT 29.9 % (36-48); HEMOGLOBIN 9.4 g/dL (12.0-16.0); LYMPHOCYTES # (AUTO) 1.6 K/uL (2.5-16.5); LYMPHOCYTES % (AUTO) 25.4 % (20.5-51.1); MEAN CORPUSCULAR HEMOGLOBIN 28 pg (27-31); MEAN CORPUSCULAR HGB CONC 31 g/dL (33-37); MEAN CORPUSCULAR VOLUME 87.5 fL (80-94); MONOCYTES # (AUTO) 0.4 K/uL (0.8-1.0); MONOCYTES % (AUTO) 6.1 % (1.7-9.3); NEUTROPHILS # (AUTO) 3.7 K/uL (1.8-7.7); NEUTROPHILS % (AUTO) 60.2 % (42.2-75.2); PLATELET COUNT (AUTO) 221 K/uL (140-450); RED BLOOD CELL COUNT(AUTO) 3.42 MIL/uL (4.20-5.40); RED CELL DISTRIBUTION WIDTH 16.6 % (11.6-13.7); WHITE BLOOD COUNT (AUTO) 6.2 K/uL (4.8-10.8)
[2018-08-04 08:00] VITALS: BP 142/73
[2018-08-04 08:38] LABS: ANION GAP 11.4 (8-16); CARBON DIOXIDE 27.5 mmol/L (21-32); CREATININE 1.5 mg/dL (0.6-1.3); POTASSIUM 4.9 mmol/L (3.5-5.1)
[2018-08-04] MEDS: PHENAZOPYRIDINE 100 MG TAB PO SCH ×2 (09:02→18:05)
[2018-08-04] MEDS: FAMOTIDINE 20 MG TAB PO SCH (09:02)
[2018-08-04] MEDS: APIXABAN 2.5 MG TAB PO SCH (09:03)
[2018-08-04] MEDS: DULoxetine 30 MG CAPDR PO SCH (09:04)
[2018-08-04] MEDS: TAMSULOSIN 0.4 MG CAP PO SCH (09:04)
[2018-08-04] MEDS: PROPRANOLOL 20 MG TAB PO SCH (09:04)
[2018-08-04] MEDS: FERROUS GLUCONATE 324 MG TAB PO SCH ×2 (09:04→18:01)
[2018-08-04] MEDS: GABAPENTIN 300 MG CAP PO SCH (09:05)
[2018-08-04] MEDS: CALAMINE/ZINC OXIDE 8% 118 ML BTL TP SCH (09:05)
[2018-08-04] MEDS: LORATADINE 10 MG TAB PO SCH (09:05)
[2018-08-04] MEDS ORDERED: FERR324T11 PO (09:06)
[2018-08-04] MEDS ORDERED: MYCPWD TP (09:06)
[2018-08-04] MEDS ORDERED: Hydraguard TP (09:06)
[2018-08-04] MEDS ORDERED: [UNRECOGNIZED DRUG - CODE] TP (09:06)
[2018-08-04] MEDS ORDERED: ATA25 PO (09:06)
--- NOTE | 2018-08-04 09:13 | NUR ---
PATIENT REFUSED SKIN CARE WITH NYSTATIN POWDER APPLICATION AT THIS TIME. STATES SHE WANTS IT TO BE DONE LATER. WILL OFFER TO PATIENT AGAIN LATER TODAY.
[2018-08-04] MEDS: INSULIN LANTUS 100 UNITS/ML 10 ML VIAL SUBQ SCH (09:18)
[2018-08-04] MEDS ORDERED: LEVO750T2 PO (09:19)
--- NOTE | 2018-08-04 09:27 | NUR ---
PER RHETT WINTER, SHE WILL CHECK IF THERE IS BED AVAILABLE AT SNF THAT PATIENT IS TO BE TRANSFERRED TO.
--- NOTE | 2018-08-04 10:05 | NUR ---
NOTIFIED DR. PETTIT THAT PATIENT IS POSITIVE FOR MRSA NARES. DR. PETTIT TO CALL RHETT WINTER.
--- NOTE | 2018-08-04 10:24 | NUR ---
PHYSICAL THERAPIST STATED PATIENT WISHES TO BE PRE-MEDICATED BEFORE THERAPY. ASKED PATIENT AND PT STATES SHE WANTS TO DO PHYSICAL THERAPY "LATER" BECAUSE SHE IS "TIRED AND DID NOT SLEEP THE WHOLE NIGHT". INFORMED PHYSICAL THERAPIST, HE WILL CHECK BACK WITH PT IN 30 MINUTES.
[2018-08-04] MEDS: HYDROcodone/APAP 10/325 MG 1 TAB TAB PO PRN (12:50)
--- NOTE | 2018-08-04 13:32 | NUR ---
Burring Machine Operator Note: I faxed patient's medical information to [facility]. Per Swathi from [facility] , patient may go to room 8C at their facility any time today, accepting physician is , insurance case manager Lakshmi escobedo.
--- NOTE | 2018-08-04 13:40 | NUR ---
NOTIFIED RHETT WINTER THAT LAB CALLED THIS MORNING TO REPORT PT IS POSITIVE FOR MRSA NARES. MAGGY AWARE THAT PATIENT WILL NEED BARIATRIC TRANSPORT AND ON 2L NC.
--- NOTE | 2018-08-04 14:37 | NUR ---
CALLED [facility] FOR [facility], AND SPOKE WITH NCIKI AND SET UP BARIATRIC GURNEY TRANSPORT . I ASKED HER TO CALL WITH THE NAME OF THE TRANSPORT AND THE TIME O F PICKUP. THE REFERENCE NUMBER FOR eshtery FOR THIS PATIENT IS [id number]. I RECEIVED A CALL BACK FROM GÓMEZ FROM [facility] FOR TRANSPORT AND SHE SAID THAT [facility] WILL AGRICULTURAL LABOR CAMP MANAGER THE PATIENT BY 6P.M. I INFORMED MEENA BALLSHIRT TURNER NURSE.
--- NOTE | 2018-08-04 15:40 | NUR ---
INFORMED PATIENT OF PLANS TO TRANSFER TO [facility] TODAY. PT VERBALIZED UNDERSTANDING. CALLED DAUGHTER ANTOINETTE BUT NO ANSWER. WILL TRY TO CALL AGAIN LATER.
[2018-08-04 16:00] VITALS: BP 130/71
--- NOTE | 2018-08-04 16:00 | NUR ---
PER DR. PETTIT, MRSA AND ACTINOBACTER OF SACRUM AND MRSA OF NARES ARE COLONIZED.
--- NOTE | 2018-08-04 16:28 | NUR ---
CALLED DAUGHTER ANTOINETTE SECOND TIME TO INFORM HER OF PLANS TO TRANSFER PT TO SNF. NO ANSWER. LEFT MESSAGE THIS TIME FOR DAUGHTER.
--- NOTE | 2018-08-04 16:43 | NUR ---
CALLED [facility] TO GIVE REPORT TO MAHNAZ RN WHO WILL BE ACCEPTING PT. INFORMED MAHNAZ RN OF PLAN OF CARE TO CONTINUE WOUND CARE AND PHYSICAL THERAPY AT SNF. REVIEWED CHIEF COMPLAINTS, DX, PMHX, ALLERGIES, LABS, VITALS, AND ACCEPTING PHYSICIAN WITH MAHNZA RN. MAHNAZ RN AWARE OF PT'S WOUNDS. INFORMED MAHNAZ RN THAT PT WILL BE TRANSFERRED WITH [facility]ATO AND WILL BE PICKED UP FROM [facility] BY 1600 TODAY. WILL D/C RT UA PICC LINE BEFORE TRANSFER PER DOCTOR ORDERS.
--- NOTE | 2018-08-04 18:40 | NUR ---
PER [facility], THEY WILL BE LATE TO DRY TRANSFER MAN PATIENT AROUND 0. WILL ENDORSE TO RESEARCH ASSOCIATE POLICY RN. WILL ENDORSE PICC LINE REMOVAL.
--- NOTE | 2018-08-04 19:20 | NUR ---
ENDORSED TRANSFER PLAN TO COMBINATION BUILDING INSPECTOR LIZZY NUNEZ. SHERRIE AWARE TO D/C PT UA PICC LINE BEFORE TRANSFER. PT IN STABLE CONDITION.
--- NOTE | 2018-08-04 19:30 | NUR ---
PT. RECEIVED FROM AM RN IN BED AWAKE AND ALERT. FOR DISCHARGE. WAITING FOR TRANSPORTATION TO TRANSFER PT. TO DESIGNATED FACILITY. VERBALIZES WELL. ORIENTED X 4.
--- NOTE | 2018-08-04 19:59 | NUR ---
PT. PICKED UP BY AMBULANCE. RESIDENT MD RAMIREZ IN HERE TO DISCHARGE PT. WITH NEW INSTRUCTIONS NOT TO TAKE OUT PICC LINE RT PT. ADAMANTLY REFUSED TO HAVE IT TAKEN OUT. "I REALLY NEED IT BAD. IF I DON'T NEED IT THEN THEY CAN TAKE IT OUT IN [facility] WITH MY MD ORDER IN THERE. " EXPLAINED PROS AND CONS OF NOT TAKING IT OUT. REFUSED TO HAVE IT TAKEN OUT. CHARGE NURSE AWARE. TRANSFERRED AWAKE AND ALERT. VERBALIZING WELL. ALL DISCHARGE PAPERS WORKS SIGNED AND SENT WITH HER. NO BELONGINGS LEFT BEHIND. AFEBRILE. PT. NO FURTHER COMPLAINTS. DENIES PAIN AND NO SOB. CONTAINER SHOP WELDER AWARE .
[2018-08-04] MEDS ORDERED: PIPE50SO5 IV (20:30)
== END 2018-08-04 20:00 | DRG 602 ==
LOC: MED 00:42 → MTU 06:38
PROVIDERS: ADMIT General Practice; ATTEND General Practice
DX: L03.116 Cellulitis of left lower limb (principal); N17.0 Acute kidney failure with tubular necrosis; E43 Unspecified severe protein-calorie malnutrition; F33.9 Major depressive disorder, recurrent, unspecified; N39.0 Urinary tract infection, site not specified; I82.403 Acute embolism and thrombosis of unspecified deep veins of lower extremity, bilateral; Z68.45 Body mass index [BMI] 70 or greater, adult; L03.115 Cellulitis of right lower limb; E66.01 Morbid (severe) obesity due to excess calories; I50.9 Heart failure, unspecified; E83.42 Hypomagnesemia; E11.65 Type 2 diabetes mellitus with hyperglycemia; K21.9 Gastro-esophageal reflux disease without esophagitis; E11.40 Type 2 diabetes mellitus with diabetic neuropathy, unspecified; B37.2 Candidiasis of skin and nail; E78.5 Hyperlipidemia, unspecified; D50.9 Iron deficiency anemia, unspecified; L30.9 Dermatitis, unspecified; E11.51 Type 2 diabetes mellitus with diabetic peripheral angiopathy without gangrene; B96.5 Pseudomonas (aeruginosa) (mallei) (pseudomallei) as the cause of diseases classified elsewhere; G47.33 Obstructive sleep apnea (adult) (pediatric); E11.22 Type 2 diabetes mellitus with diabetic chronic kidney disease; E78.00 Pure hypercholesterolemia, unspecified; I12.9 Hypertensive chronic kidney disease with stage 1 through stage 4 chronic kidney disease, or unspecified chronic kidney disease; N18.9 Chronic kidney disease, unspecified; I89.0 Lymphedema, not elsewhere classified; Z22.322 Carrier or suspected carrier of Methicillin resistant Staphylococcus aureus; Z88.1 Allergy status to other antibiotic agents; Z88.8 Allergy status to other drugs, medicaments and biological substances; Z79.84 Long term (current) use of oral hypoglycemic drugs; Z83.3 Family history of diabetes mellitus
CPT/HCPCS: 36415; 36600; 51702; 71045; 80048; 80053; 80305; 81001; 82140; 82150; 82550; 82607; 82746; 82803; 82948; 83036; 83540; 83605; 83690; 83735; 83880; 84100; 84134; 84443; 85025; 85045; 85610; 85730; 87040; 87070; 87081; 87086; 87186; 93005; 93925; 93970; 96365; 96367; 97110; 97530; 99285; J0696; J1815; J1956; J2185; J2270; J2405; J7030; J7060; Q0092

== ENCOUNTER 2019-04-14 10:30 | Inpatient (IN) | payer MEDICAID, OTHER ==
[~2019-04-14] VITALS: Ht 162.6 cm; Wt 176.9 kg
[2019-04-14 10:30] VITALS: BP 137/54
[~2019-04-14 10:30] MED LIST: APIX5TAB PO; ATA25 PO; BISO5TAB2 PO; DULO20EC PO; FAMO-90 PO; FERR324T11 PO; GABA300C PO; HYDR-5122 PO; Hydraguard TP; IMO2 PO; INSU100S22 SUBQ; LATA7.5D OP; LEVA0.6318 INH; LORA10TA19 PO; MAGN400T7 PO; MYCPWD TP; PIPE50SO5 IV; PRON INH; TAMS0.4C96 PO; [UNRECOGNIZED DRUG - CODE] TP
--- NOTE | 2019-04-14 10:30 | NUR ---
PT ARRIVED VIA GURNEY FROM TRANSPORT TEAM. PT IN STABLE CONDITION. BED IN LOW POSITION. CALL LIGHT AT BEDSIDE. BED ALARM ON. WILL CONTINUE TO MONITOR.
[2019-04-14] MEDS ORDERED: ACETAMINOPHEN 325 MG TAB PO PRN (11:45)
[2019-04-14] MEDS ORDERED: DOCUSATE SODIUM 100 MG GELCAP PO PRN (11:45)
[2019-04-14] MEDS ORDERED: ONDANSETRON 4 MG/2 ML VIAL IM/IVP PRN (11:45)
--- NOTE | 2019-04-14 12:30 | NUR ---
RECEIVED FOOD TRAY FROM FNS AND GAVE TO PT FOR LUNCH. PT IN STABLE CONDITION. WILL CONTINUE TO MONITOR.
[2019-04-14] MEDS ORDERED: NYSTATIN/TRIAMCINOLONE CRM 15 GM TUBE TP SCH (13:00)
[2019-04-14 13:31] LABS: BASOPHILS # (AUTO) 0.1 K/uL (0.00-0.22); BASOPHILS % (AUTO) 0.8 % (0.0-2.0); EOSINOPHILS # (AUTO) 0.2 K/uL (0-0.4); EOSINOPHILS % (AUTO) 3.6 % (0.0-4.0); HEMATOCRIT 34.5 % (36-48); HEMOGLOBIN 11.4 g/dL (12.0-16.0); LYMPHOCYTES # (AUTO) 1.2 K/uL (2.5-16.5); LYMPHOCYTES % (AUTO) 17.7 % (20.5-51.1); MEAN CORPUSCULAR HEMOGLOBIN 29 pg (27-31); MEAN CORPUSCULAR HGB CONC 33 g/dL (33-37); MEAN CORPUSCULAR VOLUME 88.2 fL (80-94); MONOCYTES # (AUTO) 0.4 K/uL (0.8-1.0); MONOCYTES % (AUTO) 5.3 % (1.7-9.3); NEUTROPHILS # (AUTO) 5.1 K/uL (1.8-7.7); NEUTROPHILS % (AUTO) 72.6 % (42.2-75.2); PLATELET COUNT (AUTO) 186 K/uL (140-450); RED BLOOD CELL COUNT(AUTO) 3.91 MIL/uL (4.20-5.40)
[2019-04-14 13:53] LABS: PROTHROMBIN TIME 9.6 secs (10.8-13.4)
[2019-04-14 13:57] LABS: ALBUMIN 3.1 g/dL (3.4-5.0); CARBON DIOXIDE 31.6 mmol/L (21-32); CREATININE 1.5 mg/dL (0.6-1.3); POTASSIUM 4.6 mmol/L (3.5-5.1); TOTAL BILIRUBIN 0.4 mg/dL (0.0-1.0)
[2019-04-14] MEDS ORDERED: DEXTROSE 50% 50 ML SYR IVP PRN (14:00)
[2019-04-14 14:06] LABS: CHOL/HDL RATIO 6.2 (1-4.5); FREE T4 (FREE THYROXINE) 1.05 ng/dL (0.76-1.46); MAGNESIUM 1.7 mg/dL (1.8-2.4); PHOSPHORUS 3.8 mg/dL (2.5-4.9); THYROID STIMULATING HORMONE 2.98 uIU/mL (0.34-3.74)
--- NOTE | 2019-04-14 14:22 | NUR ---
PT SLEEPING AT THIS TIME. RESPIRATIONS EVEN AND UNLABORED. WILL CONTINUE TO MONITOR.
[2019-04-14] MEDS ORDERED: PIPER/TAZO 3.375GM/D5W PREMIX 50 ML IV SCH (15:00)
--- NOTE | 2019-04-14 15:45 | NUR ---
IV [address]G PL[address] IN LEFT FOREARM. PT IN STABLE CONDITION. WILL CONTINUE TO MONITOR.
[2019-04-14 16:00] VITALS: BP 142/56
[2019-04-14] MEDS: NACL 0.9% 1,000 ML IV SCH (16:10)
[2019-04-14] MEDS: HYDROcodone/APAP 7.5/325 MG 1 TAB PO PRN ×2 (16:13→20:30)
[2019-04-14] MEDS: BLOOD GLUCOSE MONITORING 1 DEV DEV FS SCH ×2 (16:30→20:22)
--- NOTE | 2019-04-14 16:30 | NUR ---
CLEANED PT AND PLACE NEW SHEETS ON BED. MARKS CATHETER CLEANED AT THIS TIME. PT IN STABLE CONDITION. BED IN LOW POSITION. CALL LIGHT AT BEDSIDE. WILL CONTINUE TO MONITOR.
--- NOTE | 2019-04-14 17:00 | NUR ---
LABS URINE SAMPLE AND MRSA TAKEN TO LAB AT THIS TIME.
[2019-04-14 17:02] LABS: APPEARANCE,URINE SL CLOUDY (CLEAR); BILIRUBIN,URINE NEGATIVE (NEGATIVE); BLOOD, URINE 1+ (NEGATIVE); COLOR,URINE YELLOW (YELLOW); LEUKOCYTE ESTERASE ,URINE TRACE (NEGATIVE); NITRITE, URINE POSITIVE (NEGATIVE); PH,URINE 7.5 (5.0-9.0); UGLUCOSE NEGATIVE (NEGATIVE)
[2019-04-14] MEDS ORDERED: INSU100S22 SUBQ (17:06)
[2019-04-14 17:09] LABS: BARBITURATE, URINE NEG. ng/ml (NEG <=200); BENZODIAZEPINE, URINE NEG. ng/mL (NEG <=200); CANNABINOID, URINE NEG. ng/mL (NEG <=50); COCAINE, URINE NEG. ng/mL (NEG <=300); OPIATE, URINE POS. ng/mL (NEG <=2000); PHENCYCLIDINE SCREEN,URINE NEG. ng/mL (NEG <=25)
[2019-04-14] MEDS ORDERED: LOPERAMIDE 2 MG CAP PO SCH (17:10)
[2019-04-14] MEDS ORDERED: MAGNESIUM OXIDE 400 MG TAB PO SCH (17:58)
[2019-04-14] MEDS: INSULIN LISPRO SLIDING SCALE 100 UNITS/ML VIAL SUBQ PRN ×2 (18:13→20:24)
--- NOTE | 2019-04-14 19:25 | NUR ---
GAVE REPORT TO JAYSHREE FOR CONTINUITY OF CARE PT IN STABLE CONDITION.
--- NOTE | 2019-04-14 19:30 | NUR ---
ASSUMED CARE OF PATIENT, AWAKE, ALERT AND ORIENTED. CARE BOARD UPDATED. CALL LIGHT WITHIN REACH.
--- NOTE | 2019-04-14 20:00 | NUR ---
PLAN OF CARE DISCUSSED WITH PATIENT, VERBALIZED UNDERSTANDING WELL. CALL LIGHT WITHIN REACH.
[2019-04-14] MEDS: GABAPENTIN 300 MG CAP PO SCH (20:33)
[2019-04-14] MEDS: PIPER/TAZO 3.375GM/D5W PREMIX 50 ML IV SCH (20:33)
[2019-04-14] MEDS: METOPROLOL 25 MG TAB PO SCH (20:34)
[2019-04-14] MEDS: APIXABAN 2.5 MG TAB PO SCH (20:35)
[2019-04-14] MEDS: NYSTATIN/TRIAMCINOLONE OINT 15 GM TUBE TP SCH (20:36)
--- NOTE | 2019-04-14 21:00 | NUR ---
BED BATH GIVEN BY ANALYTICAL CONSULTANT. REPOSITIONED BY ANALYTICAL CONSULTANT. CALL LIGHT WITHIN REACH.
[2019-04-14] MEDS: hydrOXYzine HCL 25 MG TAB PO PRN (22:31)
--- NOTE | 2019-04-14 23:33 | NUR ---
WOUND SACCRO-COCCXY WITH NSS AND COVER WITH COMPOSITE DRESSING ORDERED.
--- NOTE | 2019-04-15 | NUR ---
ASLEEP. NO COMPLAINS. VITAL SIGNS STABLE. CALL LIGHT WITHIN REACH.
[2019-04-15 00:08] VITALS: BP 109/49
[2019-04-15] MEDS: HYDROcodone/APAP 7.5/325 MG 1 TAB PO PRN ×3 (01:02→21:11)
--- NOTE | 2019-04-15 02:00 | NUR ---
ASLEEP NO COMPLAINS. VITAL SIGNS STABLE. CALL LIGHT WITHIN REACH.
[2019-04-15] MEDS: NACL 0.9% 1,000 ML IV SCH ×2 (04:25→21:05)
[2019-04-15] MEDS: PIPER/TAZO 3.375GM/D5W PREMIX 50 ML IV SCH ×3 (04:29→21:12)
--- NOTE | 2019-04-15 05:08 | NUR ---
PERICARE BY SOLDERER ELECTRONIC. NO COMPLAINS. SOLDERER ELECTRONIC AT BEDSIDE. CALL LIGHT WITHIN REACH. REPOSITIONED BY SOLDERER ELECTRONIC.
[2019-04-15] MEDS: BLOOD GLUCOSE MONITORING 1 DEV DEV FS SCH ×4 (05:24→21:13)
[2019-04-15] MEDS: hydrOXYzine HCL 25 MG TAB PO PRN ×2 (05:25→16:16)
[2019-04-15] MEDS: INSULIN LISPRO SLIDING SCALE 100 UNITS/ML VIAL SUBQ PRN ×2 (05:44→21:18)
[2019-04-15 05:55] LABS: ANION GAP 9.7 (8-16); CREATININE 1.5 mg/dL (0.6-1.3); POTASSIUM 4.7 mmol/L (3.5-5.1)
[2019-04-15 06:07] LABS: BASOPHILS % (AUTO) 0.7 % (0.0-2.0); EOSINOPHILS # (AUTO) 0.3 K/uL (0-0.4); EOSINOPHILS % (AUTO) 4.4 % (0.0-4.0); HEMATOCRIT 33.5 % (36-48); LYMPHOCYTES # (AUTO) 1.5 K/uL (2.5-16.5); LYMPHOCYTES % (AUTO) 23.3 % (20.5-51.1); MEAN CORPUSCULAR HEMOGLOBIN 29 pg (27-31); MEAN CORPUSCULAR HGB CONC 33 g/dL (33-37); MEAN CORPUSCULAR VOLUME 88.3 fL (80-94); MONOCYTES # (AUTO) 0.4 K/uL (0.8-1.0); MONOCYTES % (AUTO) 6.6 % (1.7-9.3); NEUTROPHILS # (AUTO) 4.3 K/uL (1.8-7.7); PLATELET COUNT (AUTO) 177 K/uL (140-450); RED BLOOD CELL COUNT(AUTO) 3.79 MIL/uL (4.20-5.40); RED CELL DISTRIBUTION WIDTH 16.2 % (11.6-13.7); WHITE BLOOD COUNT (AUTO) 6.6 K/uL (4.8-10.8)
--- NOTE | 2019-04-15 07:33 | NUR ---
RECEIVED BEDSIDE REPORT FROM TAXATION INSPECTOR NURSE. PATIENT IS RESTING ON BED AT THIS TIME. PATIENT IS AAOX4. DENIES PAIN ANS SOB AT THIS TIME. RESPIRATION EVEN AND UNLABORED ON 2LPM VIA NC. NO SIGNS OF DISTRESS NOTED. IV ON L UPPER ARM 22G, CLEAN AND DRY, INFUSING PER MD ORDER. ABDOMINAL CELLULITIS RED AND WARM TO TOUCH NOTED. MARKS IN PLACE AND DRAINING SANDRA URINE. SAFETY MEASURES IN PLACE. BED ALARM ACTIVATED. BED IN LOW POSITION AND CALL LIGHT WITHIN REACH. INSTRUCTED PATIENT TO USE THE CALL LIGHT FOR ANY ASSISTANCE AND PATIENT WAS AWARE.
--- NOTE | 2019-04-15 07:33 | NUR ---
ENDORSED CARE AT BEDSIDE WITH MICHELINE BALL, PATIENT IN STABLE CONDITION.
[2019-04-15 08:00] VITALS: BP 116/51
[2019-04-15 08:15] LABS: T4 (THYROXINE) 6.7 ug/dL (4.5-12.0)
--- NOTE | 2019-04-15 09:19 | NUR ---
PATIENT HAS BEEN SCREENED AND CATEGORIZED HIGH NUTRITION RISK. PATIENT WILL BE SEEN WITHIN 1-2 DAYS OF ADMISSION. 04/15/[address]
[2019-04-15] MEDS: NYSTATIN/TRIAMCINOLONE OINT 15 GM TUBE TP SCH ×2 (09:34→21:00)
[2019-04-15] MEDS: FERROUS GLUCONATE 324 MG TAB PO SCH ×2 (09:34→17:39)
[2019-04-15] MEDS: GABAPENTIN 300 MG CAP PO SCH ×2 (09:35→21:11)
[2019-04-15] MEDS: FAMOTIDINE 20 MG TAB PO SCH (09:35)
[2019-04-15] MEDS: METOPROLOL 25 MG TAB PO SCH ×2 (09:36→21:12)
[2019-04-15] MEDS: DULoxetine 30 MG CAPDR PO SCH (09:36)
[2019-04-15] MEDS: APIXABAN 2.5 MG TAB PO SCH ×2 (09:37→21:16)
[2019-04-15] MEDS: NACL 0.9% IRR 250 ML BOTTLE IR SCH (09:41)
[2019-04-15] MEDS: INSULIN LANTUS 100 UNITS/ML 10 ML VIAL SUBQ SCH (09:44)
--- NOTE | 2019-04-15 09:45 | NUR ---
ADMINISTERED MEDS PER MD ORDER, PATIENT TOLERATED WELL. PATIENT IS WATCHING MOVIE WITH HER COMPUTER. NO SIGNS OF DISTRESS NOTED. SAFETY MEASURES IN PLACE. BED IN LOW POSITION AND CALL LIGHT WITHIN REACH. INSTRUCTED PATIENT TO USE THE CALL LIGHT FOR ANY ASSISTANCE AND PATIENT WAS AWARE.
--- NOTE | 2019-04-15 10:30 | NUR ---
P.T. NOTES UNABLE TO DO EVAL DUE TO PATIENT'S REFUSAL TO PARTICIPATE WITH P.T. EVAL. EXPLAINED THE BENEFITS OF THE OUT OF BED & ATTEMPT TO STAND WALK BUT STILL REFUSED. PLAN: WE'LL TRY AGAIN TOMORROW. HER NURSE MARITA WAS MADE AWARE.
--- NOTE | 2019-04-15 11:25 | NUR ---
PATIENT IS RESTING ON BED. DENIES PAIN AND SOB. RESPIRATION EVEN AND UNLABORED ON 2LPM VIA NC. NO SIGNS OF DISTRESS NOTED. SAFETY MEASURES IN PLACE. BED IN LOW POSITION AND CALL LIGHT WITHIN REACH. INSTRUCTED PATIENT TO USE THE CALL LIGHT FOR ANY ASSISTANCE AND PATIENT SAID OK.
[2019-04-15] MEDS: COMPOSITE DRESSING TP SCH (13:20)
--- NOTE | 2019-04-15 13:22 | NUR ---
PATIENT IS SLEEPING AT THIS TIME. EVEN AND UNLABORED CHEST RISES NOTED. NO SIGNS OF DISTRESS NOTED. SAFETY MEASURES IN PLACE. BED IN LOW POSITION AND CALL LIGHT WITHIN REACH.
--- NOTE | 2019-04-15 14:24 | NUR ---
04/15/19 RD INITIAL ASSESSMENT COMPLETED PLEASE REFER TO NUTRITION ASSESSMENT UNDER CARE ACTIVITY FOR ESTIMATED NUTRITIONAL NEEDS. 1. CONTINUE CCHO 60 GM DIET TOLERATED 2. RD PROVIDED GENERAL HEALTHY NUTRITION AND WEIGHT LOSS TIPS HANDOUTS. 3. RD TO FOLLOW UP WITH REINFORCEMENT OF NUTRITION EDUCATION 4. RD TO FOLLOW-UP 3-5 DAYS, MODERATE RISK MAYCOL KING, RD
--- NOTE | 2019-04-15 15:39 | NUR ---
PATIENT HAS A MEDIUM SOFT BM. FURS SALESPERSON IS TURNING AND CHANGING PATIENT. NO SIGNS OF DISTRESS NOTED. SAFETY MEASURES IN PLACE.
[2019-04-15 16:00] VITALS: BP 133/61
--- NOTE | 2019-04-15 16:17 | NUR ---
PATIENT COMPLAINED 6/10 PAIN ON HER LEGS AND ITCHY SEVERELY AROUND HER INNER THIGH AREA. ADMINISTERED PRN PAIN MED NORCO AND ATARAX FOR ITCHINESS, PATIENT TOLERATED WELL. PATIENT IS SITTING UP ON BED AND WATCHING MOVIE ON HER LAPTOP. SAFETY MEASURES IN PLACE. BED IN LOW POSITION AND CALL LIGHT WITHIN REACH. INSTRUCTED PATIENT TO USE THE CALL LIGHT FOR ANY ASSISTANCE AND PATIENT WAS AWARE.
--- NOTE | 2019-04-15 17:42 | NUR ---
PATIENT IS SITTING UP ON BED AND USING HER LAPTOP. NO SIGNS OF DISTRESS NOTED. SAFETY MEASURES IN PLACE. BED IN LOW POSITION AND CALL LIGHT WITHIN REACH. INSTRUCTED PATIENT TO USE THE CALL LIGHT FOR ANY ASSISTANCE AND PATIENT WAS AWARE.
--- NOTE | 2019-04-15 19:18 | NUR ---
ENDORSED PATIENT AT BEDSIDE TO ASBESTOS MICROSCOPIST NURSE FOR CONTINUITY OF CARE. PATIENT IS AWAKE AND PLAYING HER LAPTOP. PATIENT IS IN STABLE CONDITION. SAFETY MEASURES IN PLACE.
--- NOTE | 2019-04-15 19:18 | NUR ---
RECEIVED REPORT FROM AM SHIFT NURSE FOR CONTINUITY OF CARE. PATIENT IS AWAKE, LYING DOWN IN BED, WATCHING TV. PATIENT IS ON O2 2L VIA NASAL CANNULA. IV IS ON LEFT UPPER ARM 22 GA. PATIENT DENIES PAIN AT THIS TIME, AND IS IN STABLE CONDITION. WILL MONITOR PATIENT THROUGHOUT THE SHIFT.
--- NOTE | 2019-04-15 21:11 | NUR ---
PATIENT COMPLAINS OF ABDOMINAL PAIN. ADMINISTERED MEDICATIONS ORDERED. PATIENTS TOLERATED THEM WELL. WILL CONTINUE TO MONITOR PATIENT.
--- NOTE | 2019-04-15 21:40 | NUR ---
C/O NAUSEA. MEDICATED WITH ZOFRAN IVP ORDERED. WILL CONTINUE TO MONITOR.
[2019-04-16] VITALS: BP 98/42
--- NOTE | 2019-04-16 | NUR ---
PATIENT LYING DOWN, ASLEEP. VITAL SIGNS TAKEN AND CHARTED. PATIENT DENIES PAIN AT THIS TIME. WILL CONTINUE TO MONITOR PATIENT.
--- NOTE | 2019-04-16 02:00 | NUR ---
MADE ROUNDS. PATIENT LYING DOWN, APPEARS TO BE ASLEEP WITH NO SIGNS OF DISTRESS. WILL CONTINUE TO MONITOR PATIENT.
--- NOTE | 2019-04-16 04:00 | NUR ---
MADE ROUNDS .PT IS ASLEEP. NO S/S OF ANY DISCOMFORT NOTED.
[2019-04-16] MEDS: PIPER/TAZO 3.375GM/D5W PREMIX 50 ML IV SCH ×2 (05:29→12:15)
[2019-04-16] MEDS: NACL 0.9% 1,000 ML IV SCH ×2 (05:29→21:21)
[2019-04-16] MEDS: BLOOD GLUCOSE MONITORING 1 DEV DEV FS SCH ×4 (05:58→21:27)
--- NOTE | 2019-04-16 06:05 | NUR ---
BLOOD SUGAR THIS AM RESULT 145. NO INSULIN NEEDED.
[2019-04-16 06:47] LABS: CREATININE 1.6 mg/dL (0.6-1.3)
[2019-04-16 06:56] LABS: MAGNESIUM 1.8 mg/dL (1.8-2.4); PHOSPHORUS 4.6 mg/dL (2.5-4.9)
--- NOTE | 2019-04-16 07:21 | NUR ---
ENDORSED PT IN STABLE CONDITION TO AM NURSE.
--- NOTE | 2019-04-16 07:22 | NUR ---
RECEIVED ENDORSEMENT FROM FOOD SERVICE DRIVER NURSE. PATIENT IS AAOX4, ITALIAN SPEAKING. RESPIRATIONS ARE EVEN AND UNLABORED ON 2L NC. PATIENT DENIES ANY PAIN AT THIS TIME. F/C INTACT AND DRAINING CLEAR YELLOW URINE. LEFT UPPER 22G INTACT, PATENT,A ND INFUSING IVF. PLAN OF CARE WAS REVIEWED WITH PATIENT. PATIENT VERBALIZED UNDERSTANDING. SAFETY MEASURES IN PLACE, CALL LIGHT WITHIN REACH.
[2019-04-16 08:00] VITALS: BP 120/57
[2019-04-16 08:10] LABS: BASOPHILS % (AUTO) 0.4 % (0.0-2.0); EOSINOPHILS # (AUTO) 0.3 K/uL (0-0.4); EOSINOPHILS % (AUTO) 5.3 % (0.0-4.0); HEMATOCRIT 35.3 % (36-48); HEMOGLOBIN 11.5 g/dL (12.0-16.0); LYMPHOCYTES # (AUTO) 1.5 K/uL (2.5-16.5); LYMPHOCYTES % (AUTO) 23.9 % (20.5-51.1); MEAN CORPUSCULAR HEMOGLOBIN 29 pg (27-31); MEAN CORPUSCULAR HGB CONC 33 g/dL (33-37); MEAN CORPUSCULAR VOLUME 88.9 fL (80-94); MONOCYTES # (AUTO) 0.4 K/uL (0.8-1.0); MONOCYTES % (AUTO) 7.1 % (1.7-9.3); NEUTROPHILS # (AUTO) 3.9 K/uL (1.8-7.7); NEUTROPHILS % (AUTO) 63.3 % (42.2-75.2); PLATELET COUNT (AUTO) 194 K/uL (140-450); RED BLOOD CELL COUNT(AUTO) 3.97 MIL/uL (4.20-5.40); RED CELL DISTRIBUTION WIDTH 16.5 % (11.6-13.7); WHITE BLOOD COUNT (AUTO) 6.2 K/uL (4.8-10.8)
[2019-04-16] MEDS: FERROUS GLUCONATE 324 MG TAB PO SCH ×2 (08:25→16:46)
[2019-04-16] MEDS: APIXABAN 2.5 MG TAB PO SCH ×2 (08:26→21:33)
[2019-04-16] MEDS: GABAPENTIN 300 MG CAP PO SCH ×2 (08:27→21:20)
[2019-04-16] MEDS: FAMOTIDINE 20 MG TAB PO SCH (08:28)
[2019-04-16] MEDS: METOPROLOL 25 MG TAB PO SCH (08:28)
[2019-04-16] MEDS: DULoxetine 30 MG CAPDR PO SCH (08:29)
[2019-04-16] MEDS: INSULIN LANTUS 100 UNITS/ML 10 ML VIAL SUBQ SCH (08:31)
[2019-04-16] MEDS: NYSTATIN/TRIAMCINOLONE OINT 15 GM TUBE TP SCH ×2 (08:34→21:00)
[2019-04-16] MEDS: NACL 0.9% IRR 250 ML BOTTLE IR SCH (08:34)
--- NOTE | 2019-04-16 08:37 | NUR ---
ADMINISTERED SCHEDULED MEDICATIONS. PATIENT TOLERATED WELL. DENIES ANY PAIN AT THIS TIME. NO OTHER NEEDS AT THIS TIME, WILL CONTINUE TO MONITOR.
--- NOTE | 2019-04-16 09:40 | NUR ---
PT WITH PATIENT. NO OTHER NEEDS AT THIS TIME.
--- NOTE | 2019-04-16 10:30 | NUR ---
ASSISTED TO CLEAN PATIENT. PHOTOGRAPHS OF WOUNDS TAKEN. PATIENT DENIES ANY PAIN. NO OTHER NEEDS AT THIS TIME, WILL CONTINUE TO MONITOR.
[2019-04-16] MEDS ORDERED: LOPERAMIDE 2 MG CAP PO PRN (11:06)
[2019-04-16] MEDS: INSULIN LISPRO SLIDING SCALE 100 UNITS/ML VIAL SUBQ PRN ×3 (12:13→21:34)
[2019-04-16] MEDS: HYDROcodone/APAP 7.5/325 MG 1 TAB PO PRN ×2 (12:14→21:21)
--- NOTE | 2019-04-16 12:20 | NUR ---
PATIENT POSITIVE FOR MRSA OF NARES. RECEIVED RESULTS FROM BARB FROM LAB. DR. MEEHAN WAS INFORMED. DR TO SEE PATIENT. PATIENT IS C/O OF ANXIETY, DR. MEEHAN IS AWARE WELL. PENDING NEW ORDERS. NO OTHER NEEDS A THIS TIME, WILL CONTINUE TO MONITOR.
[2019-04-16] MEDS ORDERED: diphenhydrAMINE 50 MG/ML VIAL IVP SCH (12:45)
[2019-04-16] MEDS ORDERED: LORazepam 2 MG/ML VIAL IVP PRN (12:45)
[2019-04-16] MEDS ORDERED: HYDROCORTISONE 2.5% OINT 30 GM TUBE TP PRN (12:50)
[2019-04-16] MEDS: hydrOXYzine HCL 25 MG TAB PO PRN (12:59)
[2019-04-16] MEDS: COMPOSITE DRESSING TP SCH (13:00)
--- NOTE | 2019-04-16 13:05 | NUR ---
PATIENT C/O OF SEVERE ITCHING AND ANXIETY. ADMINISTERED ATIVAN PRN IVP AND PO MEDICATION FOR ITCHING. NO OTHER NEEDS AT THIS TIME, WILL CONTINUE TO MONITOR.
--- NOTE | 2019-04-16 14:53 | NUR ---
PATIENT SLEEPING, NO SIGNS OF DISTRESS. NO OTHER NEEDS AT THIS TIME, WILL CONTINUE TO MONITOR.
[2019-04-16 16:00] VITALS: BP 119/56
--- NOTE | 2019-04-16 16:15 | NUR ---
ADMINISTERED SCHEDULED MEDICATIONS. APPLIED CORTICOSTEROID CREAM. APPLIED DRSG TO OPEN WOUNDS. PATIENT DENIES ANY PAIN. NO OTHER NEEDS AT THIS TIME, WILL CONTINUE TO MONITOR.
--- NOTE | 2019-04-16 17:29 | NUR ---
PATIENT SLEEPING, NO SIGNS OF DISTRESS NOTED. NO OTHER NEEDS AT THIS TIME, WILL CONTINUE TO MONITOR.
--- NOTE | 2019-04-16 19:22 | NUR ---
RECEIVED REPORT FROM AM SHIFT NURSE FOR CONTINUITY OF CARE. PATIENT IS IN STABLE CONDITION. ON 2L O2 VIA NASAL CANNULA. BED IS IN LOW POSITION, SIDE RAILS ARE UP, AND CALL LIGHT WITHIN REACH. WILL MONITOR PATIENT THROUGHOUT SHIFT.
--- NOTE | 2019-04-16 19:22 | NUR ---
ENDORSED TO VICE PRESIDENT QUALITY ASSURANCE NURSE FOR CONTINUITY OF CARE. PATIENT IS STABLE AT THIS TIME.
[2019-04-16] MEDS ORDERED: cefTRIAXone 2,000 MG in DEXTROSE 5% 100 ML IV SCH (20:00)
[2019-04-16] MEDS: LINEZOLID 600 MG TAB PO SCH (21:20)
--- NOTE | 2019-04-16 21:21 | NUR ---
CAME IN TO PATIENT'S ROOM WITH PATIENT EXHIBITING CRYING, RESTLESSNESS, AND INCREASED ANXIETY, COMPLAINING OF BILATERAL LEG PAIN OF 7/10. ASSISTED PATIENT TO REPOSITION, AND ADMINISTERED MEDICATIONS ORDERED. WILL CONTINUE TO MONITOR PATIENT.
--- NOTE | 2019-04-16 22:21 | NUR ---
MADE ROUNDS. PATIENT STATED TOLERABLE PAIN OF 2/10. WILL CONTINUE TO MONITOR PATIENT.
[2019-04-17] VITALS: BP 150/53
--- NOTE | 2019-04-17 | NUR ---
PATIENT LYING DOWN IN BED, AWAKE, WATCHING ON HER LAPTOP. ASSISTED PATIENT TO PUT NYASTATIN AND HYDROCORTISONE CREAMS ON TARGETED AREAS. PERFORMED MARKS CATHETER CARE. PATIENT TOLERATED THEM WELL. WILL CONTINUE TO MONITOR PATIENT.
--- NOTE | 2019-04-17 03:47 | NUR ---
PATIENT LYING DOWN IN BED, AWAKE, AND WATCHING TV. PATIENT IS IN STABLE CONDITION.
[2019-04-17] MEDS: BLOOD GLUCOSE MONITORING 1 DEV DEV FS SCH ×2 (06:21→11:30)
[2019-04-17] MEDS: INSULIN LISPRO SLIDING SCALE 100 UNITS/ML VIAL SUBQ PRN ×2 (06:22→12:20)
--- NOTE | 2019-04-17 06:22 | NUR ---
BLOOD SUGAR THIS AM RESULT 198. HUMALOG 2 UNITS SUBQ GIVEN. WILL CONTINUE TO MONITOR.
[2019-04-17] MEDS: HYDROcodone/APAP 7.5/325 MG 1 TAB PO PRN ×2 (06:30→13:34)
--- NOTE | 2019-04-17 06:30 | NUR ---
PT UNCOMFORTABLE AND C/O PAIN. MEDICATED WITH NORCO PO ORDERED. WILL CONTINUE TO MONITOR
--- NOTE | 2019-04-17 07:30 | NUR ---
ENDORSED PATIENT TO AM SHIFT NURSE FOR CONTINUITY OF CARE.
--- NOTE | 2019-04-17 07:35 | NUR ---
RECEIVED BEDSIDE REPORT FROM CRAP SHOOTER RN FOR CONTINUITY OF CARE. PT IN STABLE CONDITION. NO C/O PAIN OR DISCOMFORT AT THIS TIME. NO S/S DISTRESS ALTHOUGH PATIENT SEEMS ANXIOUS/UNEASY. RESPIRATIONS EVEN AND UNLABORED. SKIN NON-INTACT, SEE WOUND ASSESSMENT. PT IS AMBULATORY WITH ASSIST PER CRAP SHOOTER RN. IV SITE PATENT AND ASYMPTOMATIC, INFUSING IVF PER MD ORDERS. ALL SAFETY PRECAUTIONS IN PLACE, WILL CONTINUE TO MONITOR. Addendum: 04/17/19 at 0938 by Alexa Fernandez Meng RN MARKS CATH IN PLACE, DRAINING URINE.
[2019-04-17 08:00] VITALS: BP 115/49
[2019-04-17] MEDS: FAMOTIDINE 20 MG TAB PO SCH (08:20)
[2019-04-17] MEDS: GABAPENTIN 300 MG CAP PO SCH (08:21)
[2019-04-17] MEDS: DULoxetine 30 MG CAPDR PO SCH (08:21)
[2019-04-17] MEDS: LINEZOLID 600 MG TAB PO SCH (08:21)
[2019-04-17] MEDS: FERROUS GLUCONATE 324 MG TAB PO SCH (08:22)
[2019-04-17] MEDS: APIXABAN 2.5 MG TAB PO SCH (08:23)
[2019-04-17] MEDS: INSULIN LANTUS 100 UNITS/ML 10 ML VIAL SUBQ SCH (08:25)
[2019-04-17] MEDS: NACL 0.9% IRR 250 ML BOTTLE IR SCH (08:27)
--- NOTE | 2019-04-17 08:29 | NUR ---
SCHEDULED MEDICATIONS ADMINISTERED. ALL SAFETY PRECAUTIONS IN PLACE, WILL CONTINUE TO MONITOR.
[2019-04-17] MEDS ORDERED: MUPIROCIN CA NASAL 2% 1GM TUBE NS SCH (09:00)
[2019-04-17] MEDS ORDERED: CHLORHEXADINE GLUC 2% CLOTH TP SCH (09:00)
[2019-04-17] MEDS ORDERED: INSULIN LANTUS 100 UNITS/ML 10 ML VIAL SUBQ SCH (09:00)
[2019-04-17] MEDS: NYSTATIN/TRIAMCINOLONE OINT 15 GM TUBE TP SCH (09:11)
--- NOTE | 2019-04-17 09:12 | NUR ---
NEW ORDER FOR 8 UNITS LANTUS FOR 0900. INFORMED DR. MEEHAN THAT SCHEDULED 0900 LANTUS 5 UNITS HAS ALREADY BEEN GIVEN, POC BS WAS 188 MG/DL. PER DR. MEEHAN, OKAY TO NOT ADMINISTER THE NEW DOSAGE, PT WILL GET 8 UNITS LANTUS STARTING TOMORROW MORNING.
--- NOTE | 2019-04-17 09:16 | NUR ---
ASSOCIATE FINANCIAL REPRESENTATIVE WAN HERE TO EVALUATE PATIENT.
--- NOTE | 2019-04-17 09:27 | NUR ---
PATIENT STATES SHE DEVELOPED BLOOD CLOT IN HER RIGHT ARM 6 MONTHS AGO FROM PICC LINE INSERTION. WANTS TO TALK TO BEFORE PICC LINE INSERTION TODAY. WILL NOTIFY DR. MEEHAN.
--- NOTE | 2019-04-17 10:20 | NUR ---
NOTIFIED DR. MEEHAN THAT PATIENT IS RELUCTANT TO HAVE PICC LINE PLACEMENT.
--- NOTE | 2019-04-17 10:33 | NUR ---
REASON FOR EVALUATION: ABDOMINAL CELLULITIS SKIN ASSESSMENT DONE WITH THIS 49 Y/O FEMALE PT ADMITTED FROM [facility] TO [facility] WITH INITIAL DX ABDOMINAL CELLULITIS. PAST MEDICAL HX INCLUDES DM, HTN, CKD, HYPERLIPEMIA AND MORBID OBESITY. ALL ABOVE INFORMATION OBTAINED FROM ADMISSION H&P AND PT, PT IS AAX4. PT IS AWAKE. SKIN IS WARM AND MOIST, BLE NO HAIR GROWTH, CHRONIC XEROSIS WITH MULTIPLE SKIN FOLDS. DORSAL PEDAL PULSES PRESENT AND NORMAL. CAPILLARY REFILLED < 2 SEC. X 10 TOES[address] F/C IN PLACE WITH CLEAR YELLOW URINE OUTPUT, PT. DISLIKE AIR MATTRESS, RISKS AND BENEFITS EXPLAINED. INSTRUCT PT TO TURN AND SHIFT WEIGHT Q 1-2 HOURS, PLAN OF CARE DISCUSSED WITH PRIMARY RN AND PT. PT VERBALIZES UNDERSTANDING. INTEGUMENTARY: -INTERTRIGO TO UNDER BREASTS, WITH RIGHT UNDER BREAST EROSION 0.1X3 CM WOUND BED IS MOIST, NO ODOR -INTERTRIGO ABDOMINAL FOLDS AND BLE POSTERIOR LEGS SKIN FOLDS -MOISTURE ASSOCIATE DERMATITIS TO RLQ ABDOMEN WITH PURPLE DISCOLORATION FROM CHRONIC CELLULITIS, SKIN INTACT AND MOIST -MOISTURE ASSOCIATE DERMATITIS (MAD) TO: R/L GROINS EXTENDED TO PERINEUM AND POSTERIOR THIGHS WHICH OBSERVED WITH REDNESS, SKIN INTACT WITH THIN SCALY SKIN. -MAD TO RIGHT AND LEFT INNER BUTTOCKS EXTENDED TO PERIANAL PARTIAL THICKNESS SKIN EROSIONS X 2 WITH LARGEST SIZE ON LEFT BUTTOCK 1X2X0.1 CM, WOUND BED IS PINK, CLEAN AND MOIST. NO ODOR. -BLE XEROSIS WITH DARK PIGMENTATION, SKIN INTACT RECOMMENDATIONS: -KEEP SKIN DRY AND CLEAN AT ALL TIMES, PLEASE CHECK Q2H AND PRN -APPLY HYDRA GUARD TO R/L LOWER EXTREMITIES XEROSIS AND BLE POSTERIOR LEGS SKIN FOLDS BID AND PRN IF SOILING - APPLY Z GUARD TO RIGHT AND LEFT INNER BUTTOCKS EXTENDED TO PERIANAL AND POSTERIOR THIGHS BID AND PRN IF SOILING, COVER THE LEFT BUTTOCK WITH OPTIFOAM AND LEAVE THE REST OPEN TO AIR -APPLY INTER DRY CLOTH TO INTERTRIGO R/L UNDER BREASTS, ABDOMINAL SKIN FOLDS Q7 DAYS AND PRN -OFFLOAD BILATERAL HEELS BY PLACING PILLOWS UNDER CALVES UNLESS OTHERWISE CONTRAINDICATED -PRESSURE REDISTRIBUTION SURFACE THERAPY -TURN AND REPOSITION Q2H, OFFLOAD SACRALCOCCYX AND BUTTOCKS BY TURNING RIGHT AND LEFT ALL ABOVE RECOMMENDATIONS DISCUSSED WITH PRIMARY RN. PLEASE CONTACT WOUND CARE NURSE FOR ANY QUESTION AND CHANGE OF WOUND CONDITION Addendum: 04/17/19 at 1046 by Shavonne Bates RN (Grace) SKIN ASSESSMENT DONE WITH PRIMARY RN, CLARIFICATION: SACRALCOCCYX SKIN INTACT, NO OPEN WOUND.
--- NOTE | 2019-04-17 10:36 | NUR ---
Welding Equipment Repairer Note: I faxed HNP, list of medication, face sheet, list of lab, microbiology results, and MD's snf orders to [facility]. Per Swathi from [facility] , patient may return to room 27 B any time today, accepting physician is , Manager Convention Valorie Acevedo made aware.
--- NOTE | 2019-04-17 10:40 | NUR ---
PER WENDY MALAGON TO D/C PATIENT TO [facility] WITH PERIPHERAL IV SITE ONLY- PICC LINE NOT NEEDED.
--- NOTE | 2019-04-17 10:41 | NUR ---
RHETT COBIAN STATES TRANSPORT WILL BE ARRANGED FOR TODAY. NOTIFIED CM THAT PLAN IS FOR D/C TOMORROW.
--- NOTE | 2019-04-17 10:45 | NUR ---
NOTIFIED DR. MEEHAN THAT STATES TRANSPORT WILL BE ARRANGED FOR TODAY. DR. MEEHAN STATES TRANSFER IS PLANNED FOR TOMORROW. WILL ASK TO CALL DR. MEEHAN.
--- NOTE | 2019-04-17 10:49 | NUR ---
RHETT COBIAN TO CALL DR. MEEHAN REGARDING POSSIBLE TRANSFER TO [facility] TODAY.
[2019-04-17] MEDS ORDERED: INTERDRY CLOTH TP SCH (10:50)
--- NOTE | 2019-04-17 11:58 | NUR ---
PHYSICAL THERAPIST AT BEDSIDE.
--- NOTE | 2019-04-17 12:45 | NUR ---
CALLED DR MEEHAN AND NOTIFIED THAT [facility] IS AWARE THAT PATIENT IS GETTING IV ANTIBIOTICS UPON TRANSFER UNTIL APRIL 22. SANCHEZ FREEMAN WAS THE ONE WHO SPOKE TO CRYSTAL FROM [facility]. PER CRYSTAL THEY WILL NOT COVER TRANSPORTATION. CALLED AND LEFT MESSAGE TO [facility] TO GET THE QUOTE.
[2019-04-17] MEDS ORDERED: HYDRAGUARD CREAM TP SCH (13:00)
[2019-04-17] MEDS ORDERED: Z-GUARD PASTE TP SCH (13:00)
--- NOTE | 2019-04-17 13:05 | NUR ---
[facility] TRANSP[facility] KYM CALLED BACK GOT A QUOTE FOR $90 DOLLARS FOR TRANSPORTATION. WILL CALL AND ASK FAMILY IF THEY AGREE TO PAY.
--- NOTE | 2019-04-17 13:13 | NUR ---
CALLED AND SPOKE TO DAUGHTER ANTOINETTE PROCTOR [phone] AND ASKED HER IF SHE AGREES TO PAY FOR TRANSPORTATION BACK TO [facility] WHICH IS $90 DOLLARS AND SHE SAID SHE WILL PAY FOR IT. SHE ALSO REQUESTED IF PATIENT COULD GO TO ANOTHER FACILITY WHICH IS [facility]. WILL CALL DR MEEHAN.
--- NOTE | 2019-04-17 13:17 | NUR ---
CALLED DR MEEHAN AND HE IS AWARE OF THE DAUGHTER'S REQUEST TO TRANSFER TO [facility], PER DR MEEHAN PATIENT NEEDS MORE REHAB POTENTIAL BEFORE TRANSFER TO [facility] AND PATIENT COULD START FROM [facility] AND MAYBE LATER MOVE TO [facility]. CALLED AND SPOKE TO DAUGHTER ANTOINETTE AND MADE AWARE THAT PATIENT COULD NOT BE TRANSFERRED TO [facility] AT THIS TIME. I ALSO INFORM HER THAT HER MOM IS GOING TO ROOM 27B AND I VERIFIED AGAIN THAT SHE WILL BILLED FOR TRANSPORTATION WHICH IS $90 AND SHE AGREED. LIZZY BOATENG MADE AWARE OF TRANSFER.
--- NOTE | 2019-04-17 13:37 | NUR ---
CALLED [employer] TO ARRANGE TRANSPORT, SPOKE WITH KYM AND HE SAID THAT THE CABRERA IS $160 SINCE THEY NEED TO HAVE A BIGGER GURNEY BECAUSE OF PATIENT WEIGHT. CALLED ANTOINETTE DAUGHTER [phone] AND AGRRED TO PAY.
--- NOTE | 2019-04-17 13:40 | NUR ---
Superintendent Compressor Stations Note: Per Swathi from [facility] , they cannot pay cost for transportation back to their facility from our hospital. She stated they can accommodate patient with Rocephin and Zyvox.
--- NOTE | 2019-04-17 13:41 | NUR ---
DR. ARROYO HERE TO EVALUATE PATIENT.
[2019-04-17] MEDS ORDERED: LINE600T PO (13:45)
[2019-04-17] MEDS ORDERED: ROC250I IV (13:45)
--- NOTE | 2019-04-17 13:56 | NUR ---
PATIENT STATES SHE WOULD LIKE TO SPEAK WITH CM. CM DAPHNE COBIAN IS AWARE AND STATES SHE WILL COME SPEAK WITH THE PATIENT.
--- NOTE | 2019-04-17 14:10 | NUR ---
RHETT COBIAN AND I HAVE SPOKE WITH PATIENT WITH REGARDS TO PLAN TO D/C TO [facility] AND POC AT [facility]. [facility] IS NOT PAYING FOR TRANSPORTATION. PATIENT STATES SHE IS UNABLE TO PAY. RHETT COBIAN WILL SPEAK WITH MOTOR CARRIER INSPECTOR.
[2019-04-17] MEDS ORDERED: INSU100S22 SUBQ (14:11)
[2019-04-17] MEDS: COMPOSITE DRESSING TP SCH (14:15)
--- NOTE | 2019-04-17 14:23 | NUR ---
SPOKE TO PATIENT AT BEDSIDE AND DISCUSSED WITH PATIENT DC PLAN TO TRANSFER PATIENT TO [facility] THIS AFTERNOON ROOM 27B. DISCUSSED WITH PATIENT THAT TRANSPORT COST IS $160. PATIENT AGREED TO BE TRANSFER TO [facility] BUT UNABLE TO PAY THE COST OF TRANSPORTATION. WILL TALK TO ADMINISTRATION ABOUT TRANSPORT PAYMENT.
--- NOTE | 2019-04-17 14:26 | NUR ---
FNS CONSULT FOR WOUND/PRESSURE ULCER RECEIVED, RECOMMENDATIONS FOR VITAMIN C 200 MG WERE GIVEN TO [address] VICENTE AND ACKNOWLEDGED. MAYCOL KING RD
--- NOTE | 2019-04-17 14:27 | NUR ---
[facility] REG[facility] THAT PATIENT IS NOT ABLE TO PAY THE COST, PER [facility] WILL SHOULDER THE COST OF TRANSPORTATION. PATIENT NOTIFIED.
--- NOTE | 2019-04-17 14:29 | NUR ---
[facility] TRANSPORTATION ARRANGE FOR 315PM ELECTRIC FAN ASSEMBLER, LIZZY BOATENG NOTIFIED.
[2019-04-17 14:39] VITALS: BP 115/49
[2019-04-17] MEDS ORDERED: ASCORBIC ACID 500 MG TAB PO SCH (15:00)
--- NOTE | 2019-04-17 15:17 | NUR ---
ENDORSED POC TO HELENA BALL AT [facility].
--- NOTE | 2019-04-17 15:38 | NUR ---
DISCHARGE PAPERWORK, INCLUDING POC AT [facility], GIVEN TO PATIENT. NEW PRESCRIPTION/MEDICATION TEACHING AND MEDICATION RECONCILIATION TEACHING GIVEN TO PATIENT. IV SITE LEFT IN PLACE. ID BANDS REMOVED. ALL PERSONAL BELONGINGS ARE WITH PATIENT. D/C WOUND PHOTOS TAKEN. PT REFUSED PNEUMOVAX.
--- NOTE | 2019-04-17 15:40 | NUR ---
[facility] TRANSP[facility] HERE TO [facility] PATIENT.
--- NOTE | 2019-04-17 16:07 | NUR ---
[facility] CALLED TO REPORT +MRSA IN ABDOMINAL DRAINAGE. CALLED HELENA BALL AT [facility] TO REPORT THIS NEW FINDING.
--- NOTE | 2019-04-17 16:31 | NUR ---
FAXED MRSA ABD DRAINAGE DOCUMENTATION AND D/C MED TO [facility] PER HELENA BALL REQUEST.
[2019-04-18] MEDS ORDERED: ASCORBIC ACID 500 MG TAB PO SCH (09:00)
== END 2019-04-17 15:40 | DRG 602 ==
LOC: MTU 10:30
PROVIDERS: ADMIT General Practice; ATTEND General Practice
DX: L03.311 Cellulitis of abdominal wall (principal); N17.0 Acute kidney failure with tubular necrosis; E43 Unspecified severe protein-calorie malnutrition; N39.0 Urinary tract infection, site not specified; Z68.44 Body mass index [BMI] 60.0-69.9, adult; E66.9 Obesity, unspecified; N18.9 Chronic kidney disease, unspecified; I12.9 Hypertensive chronic kidney disease with stage 1 through stage 4 chronic kidney disease, or unspecified chronic kidney disease; E78.5 Hyperlipidemia, unspecified; E66.01 Morbid (severe) obesity due to excess calories; G47.33 Obstructive sleep apnea (adult) (pediatric); F32.9 Major depressive disorder, single episode, unspecified; E83.42 Hypomagnesemia; K21.9 Gastro-esophageal reflux disease without esophagitis; E11.40 Type 2 diabetes mellitus with diabetic neuropathy, unspecified; B96.4 Proteus (mirabilis) (morganii) as the cause of diseases classified elsewhere; E11.22 Type 2 diabetes mellitus with diabetic chronic kidney disease
CPT/HCPCS: 36415; 71045; 76881; 80048; 80053; 80305; 81001; 82150; 82948; 83036; 83690; 83735; 83880; 84100; 84436; 84439; 84443; 84479; 84484; 85025; 85610; 85730; 87070; 87081; 87086; 87186; 93005; 97110; 97161-GP; 97530; J0696; J1815; J2060; J2405; J2543; J7030; J7060; Q0092